=== PATIENT | female | born 1965 | race Caucasian/White ===

== ENCOUNTER 2019-02-26 17:12 | Emergency (ER) | payer BC, OTHER ==
[2019-02-26] MEDS ORDERED: ALBUTEROL 2.5 MG/3 ML NEB SOL ONE (17:35)
[2019-02-26] MEDS ORDERED: ASPIRIN 81 MG CHEWABLE TABLET ONE (17:36)
[2019-02-26] MEDS ORDERED: IPRATROPIUM BROM 0.5MG/2.5ML ONE (17:36)
--- NOTE | 2019-02-26 18:01 | RAD REPORT ---
EXAM DESCRIPTION: RAD - Chest Single View - 02/26/2019 5:46 pm CLINICAL HISTORY: Chest pain;SOB Chest pain. COMPARISON: <Comparisons> FINDINGS: Portable technique limits examination quality. The lungs are mildly emphysematous but grossly clear. The heart is normal in size. No displaced fract ures. IMPRESSION: No acute intrathoracic process suspected.
[2019-02-26] MEDS ORDERED: ACETAMINOPHEN 500 MG TAB ONE (18:11)
[2019-02-26 18:24] LABS: Absolute Lymphocytes (CBC) 1.4 K/uL (0.7-4.9); Basophils % 0.3 % (0-1.3); Hematocrit 37.5 % (36.0-45.0); Lymphocytes % 28.7 % (15.3-44.8); MPV 8.8 fL (7.6-11.3); RBC Red Blood Cell Count 3.92 M/uL (3.86-4.86)
[2019-02-26 18:25] LABS: Protime INR 0.99
[2019-02-26 18:43] LABS: ALT/SGPT 129 U/L (12-78); AST/SGOT 82 U/L (15-37); Alkaline Phosphatase 97 U/L (45-117); BUN Blood Urea Nitrogen 11 mg/dL (7-18); Bicarbonate 27 mmol/L (21-32); Bilirubin Direct < 0.1 mg/dL (0-0.2); Bilirubin Total 0.4 mg/dL (0.2-1.0); Glucose Level 91 mg/dL (74-106); Magnesium 2.4 mg/dL (1.8-2.4); NT PRO-BNP 52 pg/mL (<125); Protein, Total 7.5 g/dL (6.4-8.2); Sodium Level 138 mmol/L (136-145); Troponin (Emerg Dept Use Only) < 0.02 ng/mL (0.0-0.045)
[2019-02-26] MEDS ORDERED: HYDROCODONE/CHLORPHEN 5 ML/OSYR ONE (18:58)
[2019-02-26] MEDS ORDERED: predniSONE 20 MG TAB ONE (18:58)
--- NOTE | 2019-02-26 22:02 | ER ---
Nurse's Notes [facility] Name: Olivia Powers Age: 53 yrs Sex: Female : 1965 Arrival Date: 02/26/2019 Time: 17:13 Bed 16 Private MD: Diagnosis: Chest pain, unspecified;Shortness of breath;Cough Presentation: 02/26 17:15 Presenting complaint: Patient states: Chest pain, SOB, headache, for 2-3 weeks. Cough la1 for one week. Transition of care: patient was not received from another setting of care. Onset of symptoms was February 26, 2019. Risk Assessment: Do you want to hurt yourself or someone else? Patient reports no desire to harm self or others. Initial Sepsis Screen: Does the patient meet any 2 criteria? No. Patient's initial sepsis screen is negative. Does the patient have a suspected source of infection? No. Patient's initial sepsis screen is negative. Care prior to arrival: None. 17:15 Method Of Arrival: Ambulatory la1 17:15 Acuity: RITO 3 la1 SENIOR OPERATIONS ANALYST: 17:30 LMP N/A - Post-menopause jl7 Historical: - Allergies: 17:16 No Known Allergies; la1 - PMHx: 17:16 None; la1 - PSHx: 17:16 ear sx; Hysterectomy; Cholecystectomy; D \T\ C; la1 - Immunization history:: Adult Immunizations up to date. - Social history:: Smoking status: Patient/guardian denies using tobacco. - Ebola Screening: : No symptoms or risks identified at this time. Screenin:30 Abuse screen: Denies threats or abuse. Denies injuries from another. Nutritional jl7 screening: No deficits noted. Tuberculosis screening: No symptoms or risk factors identified. 18:30 Fall Risk IV access (20 points). Total Callejas Fall Scale indicates No Risk (0-24 pts). jl7 Assessment: 17:30 General: Appears in no apparent distress. uncomfortable, Behavior is calm, cooperative, jl7 appropriate for age. Pain: Complains of pain in chest Pain does not radiate. Pain currently is 4 out of 10 on a pain scale. at worst was 6 out of 10 on a pain scale. Quality of pain is described as pressure, Pain began 2-3 days ago. Is intermittent. Neuro: Level of Consciousness is awake, alert, obeys commands, Oriented to person, place, time, situation. Cardiovascular: Heart tones S1 S2 present Patient's skin is warm and dry. Respiratory: Airway is patent Respiratory effort is even, unlabored, Respiratory pattern is regular, symmetrical, Breath sounds are clear bilaterally. GI: Abdomen is round non-distended. Derm: Skin is pink, warm \T\ dry. 18:30 Reassessment: Patient appears in no apparent distress at this time. Patient and/or jl7 family updated on plan of care and expected duration. Pain level reassessed. Patient is alert, oriented x 3, equal unlabored respirations, skin warm/dry/pink. 19:15 Reassessment: Patient appears in no apparent distress at this time. Patient and/or jb4 family updated on plan of care and expected duration. Pain level reassessed. Patient is alert, oriented x 3, equal unlabored respirations, skin warm/dry/pink. 19:15 Respiratory: Airway is patent Respiratory effort is even, unlabored, Respiratory jb4 pattern is regular, symmetrical. 20:00 Reassessment: Patient appears in no apparent distress at this time. Patient and/or jb4 family updated on plan of care and expected duration. Pain level reassessed. Patient is alert, oriented x 3, equal unlabored respirations, skin warm/dry/pink. 21:00 Reassessment: Patient appears in no apparent distress at this time. Patient and/or jb4 family updated on plan of care and expected duration. Pain level reassessed. Patient is alert, oriented x 3, equal unlabored respirations, skin warm/dry/pink. 22:11 Reassessment: Patient appears in no apparent distress at this time. Patient and/or jb4 family updated on plan of care and expected duration. Pain level reassessed. Patient is alert, oriented x 3, equal unlabored respirations, skin warm/dry/pink. Pt verbalized understanding of d/c and follow up instructions, ambulated out of Ed with steady gait with family. Vital Signs: 17:16 BP 134 / 83; Pulse 79; Resp 16; Temp 97.6; Pulse Ox 98% on R/A; Weight 90.72 kg; Height la1 5 ft. 6 in. (167.64 cm); 19:00 BP 146 / 85; Pulse 86; Resp 21; Pulse Ox 93% on R/A; jb4 19:45 BP 127 / 92; Pulse 80; Resp 21; Pulse Ox 100% on R/A; jb4 21:15 BP 133 / 95; Pulse 76; Resp 20; Pulse Ox 96% on R/A; jb4 22:09 BP 133 / 90; Pulse 84; Resp 18; Pulse Ox 96% on R/A; jb4 17:16 Body Mass Index 32.28 (90.72 kg, 167.64 cm) la1 ED Course: 17:13 Patient arrived in ED. as 17:16 Triage completed. la1 17:17 Arm band placed on right wrist. la1 17:19 Jimy Gonsalves PA is PHCP. cp 17:19 Jimy Garcia MD is Attending Physician. cp 17:23 Philly Spann, ARTEM is Primary Nurse. jl7 17:30 Patient has correct armband on for positive identification. Placed in gown. Bed in low jl7 position. Call light in reach. Side rails up X 1. front of house manager on. Pulse ox on. NIBP on. Warm blanket given. 17:30 Missed attempt(s): 22 gauge in left antecubital area. jl7 17:30 Initial lab(s) drawn, by me, sent to lab. jl7 17:35 EKG done, by air sealing technician. reviewed by Jimy Garcia MD. sm3 17:47 XRAY Chest (1 view) In Process Unspecified. EDMS 18:30 Patient maintains SpO2 saturation greater than 95% on room air. jl7 22:01 Radames Cooley MD is Referral Physician. cp 22:12 No provider procedures requiring assistance completed. Patient did not have IV access jb4 during this emergency room visit. Administered Medications: 17:50 Drug: AtroVENT Aerosol 0.5 mg Route: Inhalation; jl7 17:55 Drug: Aspirin Chewable Tablet 324 mg Route: PO; jl7 18:53 Follow up: Response: No adverse reaction jl7 17:55 Drug: Albuterol 2.5 mg Route: Inhalation; jl7 18:14 Drug: Tylenol 1000 mg Route: PO; jl7 19:01 Follow up: Response: No adverse reaction jl7 19:00 Drug: Tussionex Pennkinetic ER 5 ml Route: PO; jl7 19:01 Follow up: Response: No adverse reaction jl7 19:00 Drug: predniSONE 60 mg Route: PO; jl7 19:01 Follow up: Response: No adverse reaction jl7 Outcome: 22:02 Discharge ordered by . arisa 22:12 Discharged to home ambulatory, with family. jb4 22:12 Condition: stable 22:12 Discharge instructions given to patient, family, Instructed on discharge instructions, follow up and referral plans. medication usage, Demonstrated understanding of instructions, follow-up care, medications, Prescriptions given X 3. 22:13 Patient left the ED. jb4 Signatures: Dispatcher [employer] EDMS Erma Robertson Lee RN RN la1 Jimy Gonsalves PA PA cp Bryson, James RN RN jb4 Philly Spann RN RN jl7 Dodie Velasco 3 Corrections: (The following items were deleted from the chart) 17:17 17:15 Presenting complaint: Patient states: Chest pain, SOB, headache, for 2-3 weeks. la1 la1 19:50 19:00 BP 127 / 92; Pulse 80bpm; Resp 21bpm; Pulse Ox 100% RA; jb4 jb4
--- NOTE | 2019-02-26 22:02 | EDPHYS ---
Physician Documentation [facility] Name: Olivia Powers Age: 53 yrs Sex: Female : 1965 Arrival Date: 02/26/2019 Time: 17:13 Bed 16 Private MD: SARA Physician Jimy Garcia HPI: 02/26 17:30 This 53 yrs old Female presents to ER via Ambulatory with complaints of Chest cp Pain, Shortness Of Breath. 17:30 The patient or guardian reports chest pain that is located primarily in the anterior cp chest wall, bilaterally. Onset: 2-3 weeks ago. Associated signs and symptoms: Pertinent positives: cough, headache, shortness of breath, Pertinent negatives: abdominal pain, diaphoresis, dizziness, lower extremity pain, lower extremity swelling, lightheadedness, palpitations, recent travel, syncope, vomiting, recent surgeries. The chest pain is described as a pressure. Duration: The patient or guardian reports a single episode, that is still ongoing, and unchanged. Modifying factors: The symptoms are alleviated by nothing. the symptoms are aggravated by nothing. SHAREPOINT ADMIN: 17:30 LMP N/A - Post-menopause jl7 Historical: - Allergies: 17:16 No Known Allergies; la1 - PMHx: 17:16 None; la1 - PSHx: 17:16 ear sx; Hysterectomy; Cholecystectomy; D \T\ C; la1 - Immunization history:: Adult Immunizations up to date. - Social history:: Smoking status: Patient/guardian denies using tobacco. - Ebola Screening: : No symptoms or risks identified at this time. ROS: 17:35 Constitutional: Negative for body aches, chills, fever, poor PO intake. cp 17:35 Eyes: Negative for injury, pain, redness, and discharge. cp 17:35 ENT: Positive for ear pain, Negative for drainage from ear(s), sore throat, difficulty swallowing, difficulty handling secretions. 17:35 Cardiovascular: Positive for chest pain, Negative for edema, palpitations. 17:35 Respiratory: Positive for cough, shortness of breath, on exertion. Negative for wheezing. 17:35 Abdomen/GI: Negative for abdominal pain, nausea, vomiting, and diarrhea, black/tarry stool, rectal bleeding. 17:35 Back: Negative for radiated pain. 17:35 Skin: Negative for rash. 17:35 Neuro: Positive for headache, Negative for altered mental status, syncope, weakness. 17:35 All other systems are negative. Exam: 17:30 ECG was reviewed by the Attending Physician. cp 17:40 Constitutional: The patient appears in no acute distress, alert, awake, cp non-diaphoretic, non-toxic, well developed, well nourished. 17:40 Head/Face: Normocephalic, atraumatic. cp 17:40 Eyes: Periorbital structures: appear normal, Conjunctiva: normal, no exudate, no injection, Sclera: no appreciated abnormality, Lids and lashes: appear normal, bilaterally. 17:40 ENT: External ear(s): are unremarkable, Ear canal(s): are normal, clear, TM's: bulging, is not appreciated, bilaterally, dullness, bilaterally, erythema, is not appreciated, bilaterally, Nose: is normal, Mouth: Lips: moist, Oral mucosa: pink and intact, moist, Posterior pharynx: is normal, airway is patent, no erythema, no exudate. 17:40 Neck: ROM/movement: is normal, is supple, without pain, no range of motions limitations, no meningismus, no nuchal rigidity, Lymph nodes: no appreciated lymphadenopathy. 17:40 Chest/axilla: Inspection: normal, Palpation: is normal, no crepitus, no tenderness. 17:40 Cardiovascular: Rate: normal, Rhythm: regular, Heart sounds: murmur, not appreciated, rub, not appreciated, gallop, not appreciated, Edema: is not appreciated, JVD: is not appreciated. 17:40 Respiratory: the patient does not display signs of respiratory distress, Respirations: normal, no use of accessory muscles, no retractions, no splinting, no tachypnea, labored breathing, is not present, Breath sounds: are clear throughout, no decreased breath sounds, no stridor, no wheezing. 17:40 Abdomen/GI: Inspection: abdomen appears normal, Bowel sounds: active, all quadrants, Palpation: abdomen is soft and non-tender, in all quadrants. 17:40 Back: pain, is absent, ROM is normal. 17:40 Skin: cellulitis, is not appreciated, no rash present. 17:40 Neuro: Orientation: to person, place \T\ time. Mentation: is normal, Cerebellar function: is grossly normal, Motor: moves all fours, strength is normal, Sensation: is normal. 21:13 ECG was reviewed by the Attending Physician. cp Vital Signs: 17:16 BP 134 / 83; Pulse 79; Resp 16; Temp 97.6; Pulse Ox 98% on R/A; Weight 90.72 kg; Height la1 5 ft. 6 in. (167.64 cm); 19:00 BP 146 / 85; Pulse 86; Resp 21; Pulse Ox 93% on R/A; jb4 19:45 BP 127 / 92; Pulse 80; Resp 21; Pulse Ox 100% on R/A; jb4 21:15 BP 133 / 95; Pulse 76; Resp 20; Pulse Ox 96% on R/A; jb4 22:09 BP 133 / 90; Pulse 84; Resp 18; Pulse Ox 96% on R/A; jb4 17:16 Body Mass Index 32.28 (90.72 kg, 167.64 cm) la1 MDM: 17:29 Patient medically screened. ethan 18:52 HEART Score: History: Slightly Suspicious (0), ECG: Normal (0), Age: > 45 and < 65 cp years (1), Risk Factors: No Risk Factors Known (0), Troponin: < or = 1 x Normal Limit (0), Total Score = 1. The patient was given aspirin in the Emergency Department. The patient's pulmonary embolism risk score was calculated as follows: No Risks (0 Pts). 22:01 Data reviewed: vital signs, nurses notes, lab test result(s), EKG, radiologic studies, cp plain films. 22:01 Test interpretation: by ED physician or midlevel provider: ECG, plain radiologic cp studies. Counseling: I had a detailed discussion with the patient and/or guardian regarding: the historical points, exam findings, and any diagnostic results supporting the discharge/admit diagnosis, lab results, radiology results, the need for outpatient follow up, a road cutter, a family practitioner, to return to the emergency department if symptoms worsen or persist or if there are any questions or concerns that arise at home. ED course: VSS. Patient reports symptoms improved with breathing treatment and meds. Initial and repeat EKGs and troponin negative. Will discharge to home for continued monitoring. 02/26 17:30 Order name: Basic Metabolic Panel; Complete Time: 18:45 cp 02/26 17:30 Order name: CBC with Diff; Complete Time: 18:38 cp 02/26 17:30 Order name: LFT's; Complete Time: 18:45 cp 02/26 18:45 Interpretation: Normal except: AST 82; ALT 129. cp / 17:30 Order name: Magnesium; Complete Time: 18:45 cp 02/26 17:30 Order name: NT PRO-BNP; Complete Time: 18:45 cp 02/26 17:30 Order name: PT-INR; Complete Time: 18:38 cp 02/26 17:30 Order name: Troponin (emerg Dept Use Only); Complete Time: 18:45 cp 02/26 18:47 Interpretation: Normal except: TROPED < 0.02. cp 02/26 17:30 Order name: XRAY Chest (1 view); Complete Time: 18:09 cp 02/26 18:09 Interpretation: Report review. cp 02/26 21:02 Order name: Troponin I cp 02/26 17:30 Order name: EKG; Complete Time: 17:33 cp 02/26 17:30 Order name: Cardiac monitoring; Complete Time: 18:16 cp 02/26 17:30 Order name: EKG - Nurse/Tech; Complete Time: 18:16 cp 02/26 17:30 Order name: IV Saline Lock; Complete Time: 18:16 cp 02/26 17:30 Order name: Labs collected and sent; Complete Time: 18:16 cp 02/26 17:30 Order name: O2 Per Protocol; Complete Time: 18:16 cp 02/26 17:30 Order name: O2 Sat Monitoring; Complete Time: 18:16 cp 02/26 21:02 Order name: EKG; Complete Time: 21:03 cp 02/26 21:02 Order name: EKG - Nurse/Tech; Complete Time: 21:07 cp EC:30 Rate is 73 beats/min. Rhythm is regular. GA interval is normal. QRS interval is normal. cp QT interval is normal. T waves are Inverted in lead aVL. Interpreted by me. Reviewed by me. 21:13 Rate is 74 beats/min. Rhythm is regular. GA interval is normal. QRS interval is normal. cp QT interval is normal. Interpreted by me. Reviewed by me. Administered Medications: 17:50 Drug: AtroVENT Aerosol 0.5 mg Route: Inhalation; jl7 17:55 Drug: Aspirin Chewable Tablet 324 mg Route: PO; jl7 18:53 Follow up: Response: No adverse reaction 7 17:55 Drug: Albuterol 2.5 mg Route: Inhalation; jl7 18:14 Drug: Tylenol 1000 mg Route: PO; jl7 19:01 Follow up: Response: No adverse reaction 7 19:00 Drug: Tussionex Pennkinetic ER 5 ml Route: PO; jl7 19:01 Follow up: Response: No adverse reaction 7 19:00 Drug: predniSONE 60 mg Route: PO; jl7 19:01 Follow up: Response: No adverse reaction jl7 Disposition: 02/27 07:18 Co-signature as Attending Physician, Jimy Garcia MD I agree with the assessment and ethan plan of care. Disposition: 02/26/19 22:02 Discharged to Home. Impression: Chest pain, unspecified, Shortness of breath, Cough. - Condition is Stable. - Discharge Instructions: Nonspecific Chest Pain, Shortness of Breath, Aspirin and Your Heart, Cough, Adult. - Prescriptions for Tessalon Perles 100 mg Oral Capsule - take 2 capsule by ORAL route every 8 hours As needed; 20 capsule. Medrol (Clifford) 4 mg Oral Tablets, Dose Pack - take 1 tablet by ORAL route as directed - follow package instructions; 1 packet. Albuterol Sulfate 90 mcg/actuation - inhale 1-2 puff by INHALATION route every 4-6 hours; 1 Inhaler. - Medication Reconciliation Form, Thank You Letter, Antibiotic Education, Prescription Opioid Use form. - Follow up: Private Physician; When: 1 - 2 days; Reason: Recheck today's complaints. Follow up: Radames Cooley MD; When: 03/06/2019; Reason: as scheduled. - Problem is new. - Symptoms have improved. Signatures: Dispatcher [employer] Jimy Ness MD MD cha Attema, Lee RN RN la1 Jimy Gonsalves PA PA cp Bryson, James, ARTEM RN jb4 Philly Spann RN RN jl7 Corrections: (The following items were deleted from the chart) 02/26 22:03 22:02 02/26/2019 22:02 Discharged to Home. Impression: Chest pain, unspecified; cp Shortness of breath. Condition is Stable. Forms are Medication Reconciliation Form, Thank You Letter, Antibiotic Education, Prescription Opioid Use. Follow up: Private Physician; When: 1 - 2 days; Reason: Recheck today's complaints. Follow up: Radames Cooley; When: 03/06/2019; Reason: as scheduled. Problem is new. Symptoms have improved. cp 22:13 22:03 02/26/2019 22:02 Discharged to Home. Impression: Chest pain, unspecified; jb4 Shortness of breath; Cough. Condition is Stable. Discharge Instructions: Nonspecific Chest Pain, Shortness of Breath, Aspirin and Your Heart, Cough, Adult. Prescriptions for Tessalon Perles 100 mg Oral Capsule - take 2 capsule by ORAL route every 8 hours As needed; 20 capsule, Medrol (Clifford) 4 mg Oral Tablets, Dose Pack - take 1 tablet by ORAL route as directed - follow package instructions; 1 packet, Albuterol Sulfate 90 mcg/actuation - inhale 1-2 puff by INHALATION route every 4-6 hours; 1 Inhaler. and Forms are Medication Reconciliation Form, Thank You Letter, Antibiotic Education, Prescription Opioid Use. Follow up: Private Physician; When: 1 - 2 days; Reason: Recheck today's complaints. Follow up: Radames Cooley; When: 03/06/2019; Reason: as scheduled. Problem is new. Symptoms have improved. cp
--- NOTE | 2019-02-27 07:14 | EKG ---
Test Date: 2019-02-26 Test Time: 20:59:58 Rn Clinical Review: LINDY MEASUREMENT RESULTS: Intervals: Rate: 74 NM: 168 QRSD: 84 QT: 398 QTc: 441 [place]: P: 69 NM: 168 QRS: 63 T: 61 INTERPRETIVE STATEMENTS: Normal sinus rhythm Cannot rule out Anterior infarct, age undetermined Abnormal ECG Compared to ECG 02/26/2019 17:23:20 Myocardial infarct finding now present Electronically Signed On 02-27-19 07:13:15 CDT by Radames Cooley
--- NOTE | 2019-02-27 07:14 | EKG ---
Test Date: 2019-02-26 Test Time: 17:23:20 Talent Engineer: DONAVAN MEASUREMENT RESULTS: Intervals: Rate: 73 CO: 156 QRSD: 82 QT: 376 QTc: 414 [place]: P: 78 CO: 156 QRS: 72 T: 68 INTERPRETIVE STATEMENTS: Normal sinus rhythm Normal ECG Compared to ECG 08/21/2017 13:29:34 No significant changes Electronically Signed On 02-27-19 07:13:20 CDT by Radames Cooley
== END 2019-02-26 22:13 | disposition home or self-care (01) ==
LOC: ER 17:12
DX: R06.02 Shortness of breath (principal); R05 Cough
CPT/HCPCS: 36415; 71045; 80048; 80076; 83735; 83880; 84484; 85025; 85610; 93005; 99285; J7512

== ENCOUNTER 2020-01-10 13:38 | Emergency (ER) | payer BC, OTHER ==
--- OUTSIDE RECORDS SUMMARY | 2020-01-10 13:40 | XMS REPORT ---
:1965 Author Organization eClinicalWorks Care Team Providers Name Role Phone Strickland Tony Provider Role Unavailable Allergies, Adverse Reactions, Alerts Substance Reaction Event Type N.K.D.A. Info Not Available Non Drug Allergy Problems Problem Type Condition Code Onset Dates Condition Statu s Assessment Primary osteoarthritis of left M17.12 Active knee Problem Primary osteoarthritis of left M17.12 Active knee Assessment Transient synovitis, left knee M67.362 Active Assessment Other tear of medial meniscus of S83.242A Active left knee as current injury, initial encounter Medications Medication Code Code Instructions Start End Status Dosage System Date Date Tobramycin-Dexametha [facility] [address]-11 Activ e not sone defined Meloxicam [facility] [address]-41 Active not defined MethylPREDNISolone [facility] [address]-43 Active not defined Diclofenac Sodium [facility] [id number] 1 % Active as Transdermal directed Four times a day Results No Known Results Summary Purpose eClinicalWorks Submission
--- OUTSIDE RECORDS SUMMARY | 2020-01-10 13:40 | XMS REPORT | Continuity of Care Document ---
:1965 Author Organization [facility] t Address [address] [place] [address] Care Team Providers Name Role Phone Unavailable Unavailable Unavailable Payers Payer Name Policy Type Policy Number Effective Date Expiration Date S ource Problems Condition Condition Condition Status Onset Resolution Last Treating Co mments Source Name Details Category Date Date Treatment Clinician Date Transient Transient Diagnosis Active [facility] synovitis, synovitis, Nenita kes - left knee left knee [facility] Primary Primary Problem Active [facility] osteoarthr osteoarthr Nenita kes - itis of itis [facility] left knee left knee l [facility] Other tear Other tear Diagnosis Active [facility] of medial of medial Luke [facility] - meniscus meniscus Memori a of left of left l knee as knee as Outpati current current ent injury, injury, Clinics initial initial encounter encounter Allergies, Adverse Reactions, Alerts Allergy Allergy Status Severity Reaction(s) Onset Inactive Treating Comm ents Source Name Type Date Date Clinician No Known DA Active [facility] 12[facility]28 [place] [facility] No Known DA Active [facility] 11-18 [place] [facility] Medications Ordered Filled Start Stop Current Ordering Indication Dosage Frequency Signature Comments Components Source Medication Medication Date Date Medication? Clinician (SIG) Name Name MethylPREDN MethylPREDN Yes Tony not [facility] ISolone ISolone Strickland defined [facility] Tobramycin- Tobramycin- Yes Tony not [facility] Dexamethaso Dexamethaso Strickland defined [facility] Meloxicam Meloxicam Yes Tony not [facility] Strickland defined [facility] Diclofenac Diclofenac Yes Tony as [facility] Sodium Sodium Strickland directed [facility] Procedures This patient has no known procedures. Encounters Start End Encounter Admission Attending Care Care Encounter Source Date/Time Date/Time Type Type Clinicians Facility Department ID 2019-11-10 2019-11-10 [facility] [id number] [facility] 08[facility] 08[facility] 2019-10-16 2019-10-16 [facility] [id number] [facility] [address] 08:45:00 08:45[facility] 2019-10-09 2019-10-09 [facility] [id number] [address] 08:45[facility]00 08:45[facility]00 [facility] 2019-09-29 2019-09-29 [facility] [id number] [facility] 08:41:00 08:41:00 [facility] 2019-09-17 2019-09-17 [facility] [id number] [facility] 09:56:00 09:56:00 [facility] 2019-09-01 2019-09-01 [facility] [id number] [facility] [address] 14:18[facility]00 14:18[facility]00 [facility] 2019-08-12 2019-08-12 [facility] [id number] [address] 09:37:00 09:37:00 [facility] 2019-08-06 2019-08-06 Out[facility] [id number] 11:00:00 11:00:00 [facility] Results This patient has no known results.
--- OUTSIDE RECORDS SUMMARY | 2020-01-10 13:40 | XMS REPORT ---
:1965 Author Organization e[employer] Care Team Providers Name Role Phone Tony Strickland Provider Role Unavailable Allergies, Adverse Reactions, Alerts [...] Start End Status Dosage System Date Date MethylPREDNISolone NDC 59163-44 Active not 90-21 [place] [address]-48 Active not ne 52-05 defined Results No Known Results Summary Purpose eClinicalWorks Submission
--- NOTE | 2020-01-10 15:55 | ER ---
Nurse's Notes [facility] Name: Olivia Powers Age: 54 yrs Sex: Female : 1965 Arrival Date: 01/10/2020 Time: 13:44 Bed 17 Private MD: Diagnosis: Acute upper respiratory infection, unspecified Presentation: 01/09 13:53 Chief complaint: Patient states: sinus drainage, cough, nausea, fatigue, sweating x 2 sv days. +COVID exposure at work. Denies SOB, CP, fever. Coronavirus screen: Surgical mask placed on patient. Patient moved to private room, placed in contact and droplet isolation with eye protection until further assessment. Patient reports a cough. Patient denies shortness of breath or difficulty breathing. Patient denies measured and/or subjective temperature greater than 100.4F prior to today's visit. Patient denies travel on a cruise ship or to a country the [facility] currently lists as an affected area. Patient reports contact with known and/or suspected case of COVID-19. Ebola Screen: No symptoms or risks identified at this time. Risk Assessment: Do you want to hurt yourself or someone else? Patient reports no desire to harm self or others. Onset of symptoms was January 08, 2020. 13:53 Method Of Arrival: Ambulatory sv 13:53 Acuity: RITO 3 sv Historical: - Allergies: 13:56 No Known Allergies; sv - PMHx: 13:56 None; sv - PSHx: 13:56 ear sx; Hysterectomy; Cholecystectomy; D \T\ C; Knee surgery; sv - Immunization history:: Flu vaccine is up to date. - Social history:: Smoking status: Patient denies any tobacco usage or history of. Screenin:59 Abuse screen: Denies threats or abuse. Nutritional screening: No deficits noted. Tuberculosis screening: No symptoms or risk factors identified. Fall Risk None identified. Vital Signs: 13:53 Weight 97.52 kg; Height 5 ft. 6 in. (167.64 cm); Pain 0/10; sv 13:53 Body Mass Index 34.70 (97.52 kg, 167.64 cm) sv ED Course: 13:44 Patient arrived in ED. mr 13:48 Stevo Welch NP is PHCP. pm1 13:48 Amparo Reeder MD is Attending Physician. pm1 13:55 Triage completed. sv 13:56 Arm band placed on Patient placed in an exam room, on a stretcher. 13:59 Jessica Long, RN is Primary Nurse. 14:00 Patient has correct armband on for positive identification. Bed in low position. Call light in reach. Administered Medications: No medications were administered Outcome: 15:54 Discharge ordered by MD. pm1 16:27 Patient left the ED. sv Signatures: Saige Tapia RN RN Caitlin Hoyt Patrick, SPEEDER FRAME TENDER SPEEDER FRAME TENDER pm1 Jessica Long, RN RN
--- NOTE | 2020-01-10 15:55 | EDPHYS ---
Physician Documentation [facility] Name: Olivia Powers Age: 54 yrs Sex: Female : 1965 Arrival Date: 01/10/2020 Time: 13:44 Bed 17 Private MD: ED Physician Amparo Reeder HPI: 01/09 15:04 This 54 yrs old Female presents to ER via Ambulatory with complaints of pm1 Cough, Nausea. 15:04 The patient or guardian reports cough, with no sputum. pm1 15:04 Onset: The symptoms/episode began/occurred 2 day(s) ago. Severity of symptoms: in the pm1 emergency department the symptoms are actually worse. Modifying factors: The symptoms are alleviated by nothing, the symptoms are aggravated by nothing. Associated signs and symptoms: Pertinent positives: sore throat, body aches, nausea, earache, sinus congestion, Pertinent negatives: shortness of breath, vomiting, diarrhea. The patient has not experienced similar symptoms in the past. Patient works at a [employer] and they are having weekly tests. she had a negative test last week but she started having symptoms 2 days ago. Her coworker tested positive for covid today. . Historical: - Allergies: 13:56 No Known Allergies; sv - PMHx: 13:56 None; sv - PSHx: 13:56 ear sx; Hysterectomy; Cholecystectomy; D \T\ C; Knee surgery; sv - Immunization history:: Flu vaccine is up to date. - Social history:: Smoking status: Patient denies any tobacco usage or history of. ROS: 15:04 Eyes: Negative for injury, pain, redness, and discharge. pm1 15:04 Neck: Negative for injury, pain, and swelling, Cardiovascular: Negative for chest pain, palpitations, and edema. 15:04 Abdomen/GI: Negative for abdominal pain, nausea, vomiting, diarrhea, and constipation, Back: Negative for injury and pain, MS/Extremity: Negative for injury and deformity, Skin: Negative for injury, rash, and discoloration, Neuro: Negative for headache, weakness, numbness, tingling, and seizure. 15:04 Constitutional: Positive for body aches, Negative for poor PO intake. 15:04 ENT: Positive for ear pain, sinus congestion, sore throat. 15:04 Respiratory: Positive for cough, Negative for shortness of breath, sputum production, wheezing. Exam: 15:04 Constitutional: This is a well developed, well nourished patient who is awake, alert, pm1 and in no acute distress. Head/Face: Normocephalic, atraumatic. Eyes: Pupils equal round and reactive to light, extra-ocular motions intact. Lids and lashes normal. Conjunctiva and sclera are non-icteric and not injected. Cornea within normal limits. Periorbital areas with no swelling, redness, or edema. ENT: Nares patent. No nasal discharge, no septal abnormalities noted. Tympanic membranes are normal and external auditory canals are clear. Oropharynx with no redness, swelling, or masses, exudates, or evidence of obstruction, uvula midline. Mucous membranes moist. Neck: Trachea midline, no thyromegaly or masses palpated, and no cervical lymphadenopathy. Supple, full range of motion without nuchal rigidity, or vertebral point tenderness. No Meningismus. Chest/axilla: Normal chest wall appearance and motion. Nontender with no deformity. No lesions are appreciated. 15:04 Skin: Warm, dry with normal turgor. Normal color with no rashes, no lesions, and no evidence of cellulitis. MS/ Extremity: Pulses equal, no cyanosis. Neurovascular intact. Full, normal range of motion. 15:04 Cardiovascular: Exam negative for acute changes, Rate: normal, Rhythm: regular, Pulses: no pulse deficits are appreciated, Edema: is not appreciated. 15:04 Respiratory: Exam negative for acute changes, respiratory distress, shortness of breath, wheezing. 15:04 Abdomen/GI: Exam negative for acute changes, Inspection: abdomen appears normal, Palpation: abdomen is soft and non-tender, in all quadrants. 15:04 Neuro: Exam negative for acute changes, Orientation: is normal, Mentation: is normal, Motor: is normal, moves all fours. Vital Signs: 13:53 Weight 97.52 kg; Height 5 ft. 6 in. (167.64 cm); Pain 0/10; sv 13:53 Body Mass Index 34.70 (97.52 kg, 167.64 cm) sv MDM: 13:54 Patient medically screened. pm1 15:53 Data reviewed: vital signs. Data interpreted: Pulse oximetry: on room air is 96 %. pm1 Interpretation: normal. Counseling: I had a detailed discussion with the patient and/or guardian regarding: the historical points, exam findings, and any diagnostic results supporting the discharge/admit diagnosis, lab results, the need for outpatient follow up, to return to the emergency department if symptoms worsen or persist or if there are any questions or concerns that arise at home. 01/09 14:11 Order name: COVID-19 pm1 01/09 14:11 Order name: Flu; Complete Time: 15:02 pm1 01/09 14:11 Order name: Strep; Complete Time: 15:02 pm1 01/09 14:11 Order name: Droplet/Contact Precautions; Complete Time: 14:15 pm1 01/09 15:04 Order name: Throat Culture EDLA 01/09 14:11 Order name: Labs collected and sent; Complete Time: 14:15 pm1 01/09 14:11 Order name: O2 Per Protocol; Complete Time: 14:15 pm1 Administered Medications: No medications were administered Disposition: 01/10/20 15:54 Discharged to Home. Impression: Acute upper respiratory infection, unspecified. - Condition is Stable. - Discharge Instructions: COVID-19, Upper Respiratory Infection, Adult. - Prescriptions for Tessalon Perles 100 mg Oral Capsule - take 1 capsule by ORAL route every 8 hours As needed; 15 capsule. Zofran 4 mg Oral Tablet - take 1 tablet by ORAL route every 8 hours As needed; 10 tablet. - Work release form, Medication Reconciliation Form, Thank You Letter, Antibiotic Education, Prescription Opioid Use form. - Follow up: Emergency Department; When: As needed; Reason: Worsening of condition. Follow up: Private Physician; When: 2 - 3 days; Reason: Recheck today's complaints, Continuance of care, Re-evaluation by your physician. - Problem is new. - Symptoms have improved. Signatures: Dispatcher [employer] Saige Valenzuela RN RN sv Marinas, Patrick, NP DIRECTOR GLOBAL DEVELOPMENT pm1 Corrections: (The following items were deleted from the chart) 16:27 15:54 01/10/2020 15:54 Discharged to Home. Impression: Acute upper respiratory sv infection, unspecified. Condition is Stable. Discharge Instructions: COVID-19. Forms are Medication Reconciliation Form, Thank You Letter, Antibiotic Education, Prescription Opioid Use. Follow up: Emergency Department; When: As needed; Reason: Worsening of condition. Follow up: Private Physician; When: 2 - 3 days; Reason: Recheck today's complaints, Continuance of care, Re-evaluation by your physician. Problem is new. Symptoms have improved. pm1
== END 2020-01-10 16:27 | disposition home or self-care (01) ==
LOC: ER 13:38
DX: U07.1 COVID-19 (principal); J06.9 Acute upper respiratory infection, unspecified
CPT/HCPCS: 87070; 87081; 87804 ×2; 99281; U0001

== ENCOUNTER 2021-10-27 16:03 | Observation (INO) | payer OTHER ==
--- OUTSIDE RECORDS SUMMARY | 2021-10-27 16:09 | XMS REPORT | Continuity of Care Document ---
:1965 Author Organization [facility] t Address [address] [place] [address] Care Team Providers Name Role Phone Ra Stover Attending Clinician Unavailable Kika Esposito Attending Clinician Unavailable MITCH TYLER Attending Clinician Unavailable KAILEY IZQUIERDO Attending Clinician Unavailable Mitch Tyler MD Attending Clinician YESSENIA Admitting Clinician Unavailable Kika Esposito Admitting Clinician Unavailable Payers Payer Name Policy Type Policy Number Effective Date Expiration Date Juhi coates [employer] 2 [id number] 2018 00:00:00 Problems Condition Condition Condition Status Onset Resolution Last Treating Co mments Source Name Details Category Date Date Treatment Clinician Date Class 2 Class 2 Disease Active [facility]: 00 MILTON on MILTON on Disease Active Ann CPAP CPAP 01-06 Seybold 00:00: 00 Transient Transient Diagnosis Active C HI St [...] No Known DA Active U [facility] [place] [facility] No Known DA Active U UNKNOWN [facility] 08-01 [place] [facility] 00:00: [facility] flu DA Active IN SWELLING [facility] 07-25 Clear 00:00: Cates 00 [facility] No Known DA Active U [facility] 12-28 [place] [facility] 00:00: [facility] No Known DA Active U [facility] 12-28 [place] [facility] 00:00: [facility] No Known DA Active U [facility] 11-18 [place] [facility] 00:[facility] Social History Social Habit Start Date Stop Date Quantity Comments Source Exposure to Not sure Ann atkinson SARS-CoV-2 (event) Tobacco use and 2021-01-06 2021-01-06 Smokeless tobacco Rober boggsey Alireza exposure 00:00:00 00:00:00 non-user Sex Ass[birth year] At [birth year] Ann mosher 00:00:00 00:00:00 Smoking Status Start Date Stop Date Source Never smoked tobacco Ann roberts Medications Ordered Filled Start Stop Current Ordering Indication Dosage Frequency Signature Comments Components Source Medication Medication Date Date Medication? Clinician (SIG) Name Name Tramadol 2020- 50mg Q6H Take 50 mg Ke lsey HCl 50 MG -03-27 by mouth Silverio ld oral Tablet 18:00: 00:00 every 6 35 :00 hours as needed for pain Ca Yes 1{tbl} Take 1 Ann Phosphate-C 9-20 tablet by Pedro lopezcalcife 14:30: mouth rol 48 (Calcium/Vi tamin D3 Gummies) 200-200 MG-UNIT oral Chewable Tablet Ascorbic Yes 1{tbl} Take 1 Va y Acid 9-20 tablet by Alireza (Vitamin C) 14:30: mouth 100 MG oral 48 Chewable Tablet Cyanocobala Yes Take by Joseph bentley min (B-12) 9-20 mouth Seybold 1000 MCG 14:30: oral 48 Capsule Multiple Yes 1{tbl} Take 1 Va y Vitamins-Mi 9-20 tablet by Pedro bold nerals 14:30: mouth (Hair Skin 48 daily and Nails Formula) oral Tablet Zinc Yes 220mg Take 220 Ann Sulfate 9-20 mg by Seybold (Zinc-220) 14:30: mouth 220 (50 Zn) 48 daily MG oral Capsule Acetaminoph Yes 650mg Q8H Take 650 K elsey en (Tylenol 9-20 mg by Seybold 8 Hour) 650 14:30: mouth MG oral Tab 48 every 8 CR hours as needed for pain Calcium Yes 1{tbl} Take 1 Ann Carbonate - tablet by Seybo ld Antacid 14:30: mouth (Tums) 500 48 daily MG oral Chewable Tablet Cefdinir Yes [id number] 300mg Take 1 Ann 300 MG oral 03-27 37221 capsule Seyb old Capsule 00:00: (300 mg 00 total) by mouth 2 times daily NEOMYCIN-PO 2020- No [id number] 2[drp] Place 2 Ann LYMYXIN-HC, 03-27 32155 drops into Seybold OTIC, 1 % 00:00: 04:59 the right otic 00 :00 ear 3 Solution times daily for 7 days Fluconazole 2020- No [id number] 150mg Take 1 Ann 150 MG oral 03-27 tablet Seybo ld Tablet 00:00: 04:59 (150 mg 00 :00 total) by mouth once for 1 dose Albuterol Yes [id number] 2{puff} Q4H Inhale 2 Ann HFA 108 (90 03-08 puffs into Se ybold Base) 00:00: the lungs MCG/ACT IN 00 every 4 AERS hours as needed for wheezing Amoxicillin 2020- No [id number] 1{tbl} Take 1 Ann -Pot 03-08 tablet by Seybold Clavulanate 00:00: 00:00 mouth 3 500-125 MG 00 :00 times oral Tablet daily MethylPREDN MethylPREDN Yes Tony not [facility] ISolone ISolone [facility] defined [facility] Tobramycin- Tobramycin- Yes Tony not [facility] Dexamethaso Dexamethaso [facility] defined [facility] Meloxicam Meloxicam Yes Tony not [facility] defined [facility] Diclofenac Diclofenac Yes Tony as [facility] Sodium Sodium [facility] directed [facility] Immunizations Ordered Immunization Filled Immunization Date Status Commen ts Source Name Name Shingles IM 2021-01-06 Completed Ann atkinson (Shingrix) 00:00:00 [id number] 2009-04-29 Completed Ann Lay 00:00:00 Vital Signs Vital Name Observation Time Observation Value Comments Source Systolic blood pressure 2021-03-27 19:26:00 120 mm[Hg] Ann Seybold Diastolic blood 2021-03-27 19:26:00 62 mm[Hg] Kelse y Seybold pressure Heart rate 2021-03-27 19:26:00 96 /min Ann Juhi sylvia Body temperature 2021-03-27 19:26:00 36.5 Suzette Debbie ey Seybold Respiratory rate 2021-03-27 19:26:00 20 /min Debbie ey Seybold Body height 2021-03-27 19:26:00 167.6 cm Ann Reynaga sylvia Body weight 2021-03-27 19:26:00 95.165 kg Ann maytonya BMI 2021-03-27 19:26:00 33.86 kg/m2 Ann Juhi syvlia Procedures Procedure Date / Time Performed Performing Clinician Sourc e LS RAPID STREP ASSAY-LAB 2021-03-27 20:00:25 Margot Tyler TEST Encounters Start End Encounter Admission Attending Care Care Encounter Source Date/Time Date/Time Type Type Clinicians Facility Department ID 2021-08-02 Outpatient CODI Stover [facility] [id number] 11[facility]04:34 [facility] 2021-08-02 Outpatient CODI Stover [facility] [id number] [facility] 11:04:25 Guy [facility] 2020-08-02 Inpatient ABISAI Mcgill SURG [id number] [facility] 13:30:00 Melquiades [id number] [facility] 2021-09-22 2021-09-22 Outpatient ABISAI Mcgill DAYS [id number] [facility] 06:29:00 06:29:00 Melquiades [id number] [place] [facility] 2021-09-22 2021-09-22 Outpatient ABISAI Mcgill HCATO [id number] [facility] 06:29:00 06:29:00 Melquiades Nicolas [facility] 2021-05-25 2021-05-25 Outpatient ANN TYLER [id number] Ann 00:00:00 00:00:00 MARGOT Langstonol [place] 2021-03-31 2021-03-31 Outpatient DARRYN IZQUIERDO [id number] Ann 13:45:00 13:45:00 Seybol d 2021-03-27 2021-03-27 Office Darryn Tyler [id number] Ann 14:23:11 14:53:11 Visit Margot Castaneda [id number] [place] [id number] 2021-03-08 2021-03-08 Outpatient ANN TYLER [id number] Ann 10:30:00 10:30:00 MARGOT Seybol d 2021-03-07 2021-03-07 Outpatient ANN TYLER [id number] Ann 00:00:00 00:00:00 MARGOT Seybol d 2020-07-25 2020-07-25 Outpatient LACHELLE EspositoCL LABO [id number] [facility] 17:44:00 17:44:00 Melquiades [id number] [facility] 2020-07-25 2020-07-25 Outpatient ABISAI Esposito SURG [id number] [facility] 13:30:00 13:30:00 Melquiades [id number] [facility] 2019-12-31 2019-12-31 Outpatient ABISAI Esposito SURG [id number] [facility] 13:30:00 13:30:00 Melquiades [id number] [facility] 2019-12-29 2019-12-29 Outpatient Vaibhav, HCATO SURG [id number] [facility] 12:00:00 12:00:00 Melquiades [id number] [facility] 2019-11-10 2019-11-10 [facility] [id number] [facility] [address] 08:00:00 08:00:00 [facility] 2019-10-16 2019-10-16 [facility] [id number] [address] 08:45:00 08:45:00 t [facility] 2019-10-09 2019-10-09 [facility] [id number] 08:45:00 08:45:00 t [facility] 2019-09-29 2019-09-29 [facility] [id number] 08:41:00 08:41:00 t [facility] 2019-09-17 2019-09-17 [facility] [id number] 09:56:00 09:56:00 t [facility] 2019-09-01 2019-09-01 [facility] [id number] 14:18:00 14:18:00 t [facility] 2019-08-12 2019-08-12 [facility] [id number] 09:37:00 09:37:00 t [facility] 2019-08-06 2019-08-06 [facility] [id number] 11:00:00 11:00:00 t [facility] ent Clinics Results Test Description Test Time Test Comments Results Result Comments Source LS RAPID STREP ASSAY-LAB TEST 2021-03-27 20:17:49 Test Item Value Reference Range Interpretation Comme nts STREP GP A AG, IA (test code = Negative Negative Infection due to Strep A cannot [id number]) be ruled-out be cause the antigen present in the sample may be below th e detection limit of the te st. Specimen has been sent for c onfirmation of negative. Lab Interpretation (test code = Normal 67095-9) [facility] [id number] 06:51:00 Test Item Value Reference Range Interpretation Comments SODIUM (test code = 140 mmol/L 136-145 N NA) POTASSIUM (test code = 5.0 mmol/L 3.5-5.1 N K) CHLORIDE (test code = 102.0 mmol/L 98-107 N CL) CARBON DIOXIDE (test 28.8 mmol/L 21-32 N code = CO2) GLUCOSE (test code = 138 mg/dL 70-110 H GLU) BLOOD UREA NITROGEN 13 mg/dL 7-18 N (test code = BUN) GLOMERULAR FILTRATION 64.5 >60 Unit o f measure: RATE (test code = GFR) mL/mi n/1.73 p0Hvthgeiep Range:Healthy Adults >90 mL/min/1.73 m2 For Chronic Kidney Disease: St age II Mild Decrease in GFR 60-90 St age III Moderate Decrease in GFR 30-59 Stage IV Severe Decre ase in GFR 15- 29 Stage V Kidney Failure <15 CREATININE (test code 0.90 mg/dL 0.55-1.30 N = CREAT) CALCIUM (test code = 8.4 mg/dL 8.2-10.1 N CA) HGB [id number] 06:00:00 Test Item Value Reference Range Interpretation Comments HEMOGLOBIN (test code = HGB) 11.0 g/dL 12-16 L HEMATOCRIT (test code = HCT) 32.9 % 37-47 L SPECIMEN COMMENT: POD #1- XR KNEE 1 OR 2 V [id number] 12:18:00 [facility] 1965 Sex: F Patient Name: JOLYNN FREEDMAN Unit No: [id number] EXAMS: CPT CODE: [id number] XR KNEE 1 OR 2 V RT [id number] RIGHT KNEE 2 VIEWS PORTABLE COMMENT: The patient is status post joint replacement which is articulating normally. at 1218 Reported and signed by: Malcom Thomson MD CC: Melquiades Esposito MD Technologist: PHIL WHITT (RT.R) Transcribed D/ (8192) tMARYJCL [facility] NAME: JOLYNN FREEDMAN [address] [place] [address] PHYS: Melquiades Brantley MD : 1965 AGE: 55 SEX: F [place], [place] [address] LOC: Y.314 A PHONE #: [phone] EXAM DATE: 08/02/2020 STATUS: ADM IN FAX #: [phone] RAD #: D/C DT PAGE 1 Signed Report Patient Name: JOLYNN FREEDMAN Unit No: [id number] EXAMS: CPT CODE: [id number] XR KNEE 1 OR 2 V RT [id number] <Continued> Orig Print D/T: S: 08/02/2020 (3357) [facility] NAME: JOLYNN FREEDMAN [address] [facility] PHYS: Melquiades Brantley MD : 1965 AGE: 55 SEX: F [place] [address] LOC: Y.314 A PHONE #: [phone] EXAM DATE: 08/02/2020 STATUS: ADM IN FAX #: [phone] RAD #: D/C DT PAGE 2 Signed Report COMPREHENSIVE METABOLIC [id number] 17:17:00 Test Item Value Reference Range Interpretation Comments SODIUM (test code = 140 mmol/L 136-145 N NA) POTASSIUM (test code = 4.6 mmol/L 3.5-5.1 N K) CHLORIDE (test code = 101.0 mmol/L 98-107 N CL) CARBON DIOXIDE (test 29.4 mmol/L 21-32 N code = CO2) GLUCOSE (test code = 97 mg/dL 70-110 N GLU) BLOOD UREA NITROGEN 10 mg/dL 7-18 N (test code = BUN) GLOMERULAR FILTRATION 83.5 >60 Unit o f measure: RATE (test code = GFR) mL/mi n/1.73 x6Sdolirxom Range:Healthy Adults >90 mL/min/1.73 m2 For Chronic Kidney Disease: St age II Mild Decrease in GFR 60-90 St age III Moderate Decrease in GFR 30-59 Stage IV Severe Decre ase in GFR 15- 29 Stage V Kidney Failure <15 CREATININE (test code 0.72 mg/dL 0.55-1.30 N = CREAT) TOTAL PROTEIN (test 7.2 g/dL 6.4-8.2 N code = PROT) ALBUMIN (test code = 4.2 g/dL 3.4-5.0 N ALB) GLOBULIN (test code = 3.0 g/dL 2.2-4.2 N GLOB) ALBUMIN/GLOBULIN RATIO 1.4 0.7-2.0 N (test code = A/G) CALCIUM (test code = 9.7 mg/dL 8.2-10.1 N CA) BILIRUBIN TOTAL (test 0.50 mg/dL 0.2-1.00 N code = BILT) SGOT/AST (test code = 29.0 U/L 15-37 N AST) SGPT/ALT (test code = 49.0 U/L 12-78 N Please note new ALT) normal range. ALKALINE PHOSPHATASE 95 U/L 46-116 N TOTAL (test code = ALKP) CBC W/AUTO [id number] 16:33:00 Test Item Value Reference Range Interpretation Comments WHITE BLOOD CELL (test code = WBC) 5.3 K/mm3 5.8-11.0 L RED BLOOD CELL (test code = RBC) 4.32 M/mm3 4.2-5.4 N HEMOGLOBIN (test code = HGB) 13.6 g/dL 12-16 N HEMATOCRIT (test code = HCT) 39.7 % 37-47 N MEAN CELL VOLUME (test code = MCV) 92 fL 80-98 N MEAN CELL HGB (test code = MCH) 31.5 pg 27-34 N MEAN CELL HGB CONCENTRATION (test 34.3 g/dL 30.8-34.1 H code = MCHC) RED CELL DISTRIBUTION WIDTH (test 12.9 % 11-16 N code = RDW) PLT (test code = PLT) 213 K/mm3 130-400 N MEAN PLATELET VOLUME (test code = 10.4 fL 8.9-12.1 N MPV) NEUTROPHIL % (test code = NT%) 58.8 % 45-70 N LYMPHOCYTE % (test code = LY%) 29.9 % 20-40 N MONOCYTE % (test code = MO%) 9.2 % 3-10 N EOSINOPHIL % (test code = EO%) 1.3 % 1-5 N BASOPHIL % (test code = BA%) 0.4 % 0.0-1.1 N NEUTROPHIL # (test code = NT#) 3.12 K/mm3 2.00-7.50 N LYMPHOCYTE # (test code = LY#) 1.59 K/mm3 1.50-4.00 N MONOCYTE # (test code = MO#) 0.49 K/mm3 0.2-0.8 N EOSINOPHIL # (test code = EO#) 0.07 K/mm3 0.04-0.4 N BASOPHIL # (test code = BA#) 0.02 K/mm3 0.02-0.10 N MANUAL DIFF REQUIRED (test code = NO MANUAL DIFF MDIFF) NUCLEATED RED BLOOD CELL (test 0 % 0-0 N code = NRBC)
[2021-10-27] MEDS ORDERED: NA CHLORIDE 0.9% 1,000 ML ONE (16:32)
[2021-10-27 17:02] LABS: Absolute Lymphocytes (CBC) 1.6 K/uL (0.7-4.9); Hematocrit 41.6 % (36.0-45.0); Lymphocytes % 28.1 % (15.3-44.8); MPV 8.7 fL (7.6-11.3); RBC Red Blood Cell Count 4.51 M/uL (3.86-4.86)
[2021-10-27 17:06] LABS: Protime INR 1.04
--- NOTE | 2021-10-27 17:18 | RAD REPORT ---
EXAM DESCRIPTION: Annetta Single View10/27/2021 5:02 pm CLINICAL HISTORY: sob COMPARISON: 2019 FINDINGS: Calcified granuloma left lung. The lungs appear clear of acute infiltrate. The heart is normal size IMPRESSION: No acute abnormalities displayed
[2021-10-27 17:26] LABS: ALT/SGPT 97 U/L (12-78); AST/SGOT 55 U/L (15-37); Albumin 4.2 g/dL (3.4-5.0); Alkaline Phosphatase 98 U/L (45-117); BUN Blood Urea Nitrogen 11 mg/dL (7-18); Bicarbonate 30 mmol/L (21-32); Bilirubin Total 0.3 mg/dL (0.2-1.0); Glomerular Filtration Rate 81 mL/min (=/>90); Glucose Level 100 mg/dL (74-106); Magnesium 2.4 mg/dL (1.8-2.4); NT PRO-BNP 37 pg/mL (<125); Potassium 4.2 mmol/L (3.5-5.1); Protein, Total 7.4 g/dL (6.4-8.2); Sodium Level 136 mmol/L (136-145); Troponin High Sensitivity 5.8 pg/mL (<58.9)
--- NOTE | 2021-10-27 17:29 | EDPHYS ---
Physician Documentation [facility] Name: Olivia Powers Age: 56 yrs Sex: Female : 1965 Arrival Date: 10/27/2021 Time: 16:07 Bed 13 Private MD: Jimy Aguayo HPI: 10/27 17:22 This 56 yrs old Female presents to ER via Ambulatory with complaints of High ethan Blood Pressure, Breathing Difficulty, Headache. 17:22 The patient has elevated blood pressure and discovered this at home. Onset: The ethan symptoms/episode began/occurred 1 week(s) ago. Modifying factors: The symptoms are aggravated by activity, The symptoms are alleviated by remaining still. Historical: - Allergies: 16:14 No Known Allergies; jb4 - PMHx: 16:14 SVT; jb4 - PSHx: 16:14 Cholecystectomy; hysterectomy; ear; jb4 - Immunization history:: Adult Immunizations up to date. - Social history:: Smoking status: Patient denies any tobacco usage or history of. ROS: 17:22 Constitutional: Negative for fever, chills, and weight loss, Eyes: Negative for injury, ethan pain, redness, and discharge, ENT: Negative for injury, pain, and discharge, Neck: Negative for injury, pain, and swelling, Abdomen/GI: Negative for abdominal pain, nausea, vomiting, diarrhea, and constipation, Back: Negative for injury and pain, : Negative for injury, bleeding, discharge, and swelling, MS/Extremity: Negative for injury and deformity, Skin: Negative for injury, rash, and discoloration, Neuro: Negative for headache, weakness, numbness, tingling, and seizure. 17:22 Cardiovascular: Positive for chest pain, palpitations. 17:22 Respiratory: Positive for cough, shortness of breath, on exertion. Exam: 17:22 Constitutional: This is a well developed, well nourished patient who is awake, alert, ethan and in no acute distress. Head/Face: Normocephalic, atraumatic. Eyes: Pupils equal round and reactive to light, extra-ocular motions intact. Lids and lashes normal. Conjunctiva and sclera are non-icteric and not injected. Cornea within normal limits. Periorbital areas with no swelling, redness, or edema. ENT: Nares patent. No nasal discharge, no septal abnormalities noted. Tympanic membranes are normal and external auditory canals are clear. Oropharynx with no redness, swelling, or masses, exudates, or evidence of obstruction, uvula midline. Mucous membranes moist. Neck: Trachea midline, no thyromegaly or masses palpated, and no cervical lymphadenopathy. Supple, full range of motion without nuchal rigidity, or vertebral point tenderness. No Meningismus. Chest/axilla: Normal chest wall appearance and motion. Nontender with no deformity. No lesions are appreciated. Cardiovascular: Regular rate and rhythm with a normal S1 and S2. No gallops, murmurs, or rubs. Normal PMI, no JVD. No pulse deficits. Respiratory: Lungs have equal breath sounds bilaterally, clear to auscultation and percussion. No rales, rhonchi or wheezes noted. No increased work of breathing, no retractions or nasal flaring. Abdomen/GI: Soft, non-tender, with normal bowel sounds. No distension or tympany. No guarding or rebound. No evidence of tenderness throughout. Back: No spinal tenderness. No costovertebral tenderness. Full range of motion. Skin: Warm, dry with normal turgor. Normal color with no rashes, no lesions, and no evidence of cellulitis. MS/ Extremity: Pulses equal, no cyanosis. Neurovascular intact. Full, normal range of motion. Neuro: Awake and alert, GCS 15, oriented to person, place, time, and situation. Cranial nerves II-XII grossly intact. Motor strength 5/5 in all extremities. Sensory grossly intact. Cerebellar exam normal. Normal gait. Psych: Awake, alert, with orientation to person, place and time. Behavior, mood, and affect are within normal limits. 17:22 Musculoskeletal/extremity: DVT Exam: No signs of deep vein thrombosis. no pain, no swelling, no tenderness, negative Homans' sign noted on exam, no appreciated bluish discoloration, no erythema, no increased warmth. Vital Signs: 16:11 BP 158 / 94; Pulse 89; Resp 16; Temp 98.9(O); Pulse Ox 99% on R/A; Weight 95.25 kg (R); jb4 Height 5 ft. 6 in. (167.64 cm); Pain 4/10; 16:40 BP 137 / 84; Pulse 87; Resp 17; Pulse Ox 99% on R/A; ab2 17:46 BP 153 / 90; Pulse 71; Resp 17; Pulse Ox 100% on R/A; ab2 18:26 BP 151 / 88; Pulse 79; Resp 18; Pulse Ox 98% on R/A; ab2 20:08 BP 151 / 78; Pulse 72; Resp 16; Pulse Ox 99% ; Pain 5/10; ad1 21:14 BP 154 / 89; Pulse 72; Resp 16; Pulse Ox 99% ; ab2 16:11 Body Mass Index 33.89 (95.25 kg, 167.64 cm) jb4 MDM: 16:17 Patient medically screened. ethan 17:24 Antibiotic administration: Not indicated. Differential diagnosis: Anemia Malignant HTN. ethan HEART Score: History: Slightly Suspicious (0), ECG: Normal (0), Age: > 45 and < 65 years (1), Risk Factors: 1 or 2 risk factors (1), [Hypertension] [+ Family HX] [Obesity] Troponin: < or = 1 x Normal Limit (0). The patient was given aspirin in the Emergency Department. The patient's Wells Deep Vein Thrombosis Score was calculated as follows: Total Score: 0. This patient was found to be at low risk for a deep vein thrombosis by using the Well's assessment criteria Total Score: 0-2 Pts- Low Risk. The patient's pulmonary embolism risk score was calculated as follows: Total Score: 0-2 points. This patient was found to be at low risk for a pulmonary embolism by using the Well's assessment criteria Total Score: 0-2 points. This patient was found to be at low risk for a pulmonary embolism by using the Well's assessment criteria. HEYDI Risk Score: 1 - Three or more CAD risk factors, TOTAL SCORE = 1. Immunization status: Influenza vaccine: Not up to date. Data reviewed: vital signs, nurses notes, lab test result(s), EKG, radiologic studies, plain films. Data interpreted: monitoring manager: rate is 87 beats/min, rhythm is regular, Pulse oximetry: on room air. Test interpretation: by ED physician or midlevel provider: ECG, plain radiologic studies. 10/27 16:19 Order name: Basic Metabolic Panel; Complete Time: 18:25 [facility] 10/27 16:19 Order name: CBC with Diff; Complete Time: 17:20 [facility] 10/27 16:19 Order name: LFT's; Complete Time: 18:25 [facility] 10/27 16:19 Order name: Magnesium; Complete Time: 18:25 [facility] 10/27 16:19 Order name: NT PRO-BNP; Complete Time: 18:25 [facility] 10/27 16:19 Order name: PT-INR; Complete Time: 17:20 [facility] 10/27 16:19 Order name: Troponin HS; Complete Time: 18:25 [facility] 10/27 16:19 Order name: TSH; Complete Time: 18:25 [facility] 10/27 16:19 Order name: SARS-COV-2 RT PCR (Document "Date of Onset" if Symptomatic); Complete Time: [facility] 18:10/27 20:02 Order name: Urine Dipstick-Ancillary; Complete Time: 20:35 EDMS 10/27 20:39 Order name: Troponin High Sensitivity EDMS 10/27 20:39 Order name: Troponin High Sensitivity EDMS 10/27 20:39 Order name: Troponin High Sensitivity EDMS 10/27 16:19 Order name: XRAY Chest (1 view); Complete Time: 17:20 [facility] 10/27 16:19 Order name: EKG; Complete Time: 16:20 [facility] 10/27 16:19 Order name: Cardiac monitoring; Complete Time: 16:31 [facility] 10/27 16:19 Order name: EKG - Nurse/Tech; Complete Time: 16:10/27 16:19 Order name: IV Saline Lock; Complete Time: 16:31 ethan 10/27 16:19 Order name: Labs collected and sent; Complete Time: 16:31 [facility] 10/27 16:19 Order name: O2 Per Protocol; Complete Time: 16:31 [facility] 10/27 16:19 Order name: O2 Sat Monitoring; Complete Time: 16:31 [facility] 10/27 16:19 Order name: Urine Dipstick-Ancillary (obtain specimen); Complete Time: 21:04 [facility] 10/27 20:39 Order name: Echo with Doppler EDMS Administered Medications: 16:31 Drug: NS 0.9% 1000 ml Route: IV; Rate: 75 ml/hr; Site: right antecubital; ab2 17:45 Drug: Pepcid (famotidine) 20 mg Route: IVP; Site: right antecubital; ab2 17:46 Drug: Aspirin Chewable Tablet 324 mg Route: PO; ab2 17:46 Drug: Lovenox (enoxaparin) 1 mg/kg Route: Sub-Q; Site: right upper arm; ab2 20:05 Not Given (Hemodynamic Parameters): Lopressor (metoprolol TARTRATE) 50 mg PO once ab2 21:02 Drug: Ketorolac 15 mg Route: IVP; Site: right antecubital; ab2 Disposition Summary: 10/27/21 17:28 Hospitalization Ordered Hospitalization Status: Observation ethan Provider: Amparo Rivera cha Condition: Stable ethan Problem: new ethan Symptoms: have improved ethan Bed/Room Type: Standard ethan Location: Telemetry/MedSurg (observation)(10/27/21 19:31) mw Room Assignment: 204(10/27/21 20:38) mw Diagnosis - Angina pectoris, unspecified ethan - Dyspnea ethan Forms: - Medication Reconciliation Form ethan - SBAR form ethan Signatures: Dispatcher [employer] EDMarsha Augustine RN RN mw Anderson, Corey, MD MD cha Bryson, James, RN RN jb4 Christofer Ramon2 Adelaida Robins PA PA sb3 Corrections: (The following items were deleted from the chart) 16:15 16:14 PSHx: DNC; ebonie jb4 19:28 17:28 [facility] 19:31 17:28 Telemetry/MedSurg (observation) [facility] 19:31 19:28 204 mw mw 20:38 19:31 mw mw
--- NOTE | 2021-10-27 17:29 | ER ---
Nurse's Notes [facility] Name: Olivia Powers Age: 56 yrs Sex: Female : 1965 Arrival Date: 10/27/2021 Time: 16:07 Bed 13 Private MD: Diagnosis: Angina pectoris, unspecified;Dyspnea Presentation: 10/27 16:11 Chief complaint: Patient states: I have been having an elevated heart rate with any jb4 exertion. It has been getting more difficult to breath and now my blood pressure is going up. I tried to go see my Dr. but they said they cannot see me until the 11/27. My headache has just been getting worse and worse. Coronavirus screen: At this time, the client does not indicate any symptoms associated with coronavirus-19. Ebola Screen: No symptoms or risks identified at this time. Initial Sepsis Screen: Does the patient meet any 2 criteria? No. Patient's initial sepsis screen is negative. Does the patient have a suspected source of infection? No. Patient's initial sepsis screen is negative. Risk Assessment: Do you want to hurt yourself or someone else? Patient reports no desire to harm self or others. Onset of symptoms was October 15, 2021. Transition of care: patient was not received from another setting of care. 16:11 Method Of Arrival: Ambulatory jb4 16:11 Acuity: RITO 3 jb4 Historical: - Allergies: 16:14 No Known Allergies; jb4 - PMHx: 16:14 SVT; jb4 - PSHx: 16:14 Cholecystectomy; hysterectomy; ear; jb4 - Immunization history:: Adult Immunizations up to date. - Social history:: Smoking status: Patient denies any tobacco usage or history of. Screenin:40 Abuse screen: Denies threats or abuse. Denies injuries from another. Nutritional ab2 screening: No deficits noted. Tuberculosis screening: No symptoms or risk factors identified. Fall Risk None identified. Assessment: 16:38 General: Appears in no apparent distress. comfortable, Behavior is calm, cooperative, ab2 appropriate for age. Pain: Complains of pain in anterior aspect of right shoulder. Neuro: Level of Consciousness is awake, alert, obeys commands, Oriented to person, place, time, situation, Appropriate for age Shear Grinder Operator Helper are equal bilaterally Moves all extremities. Gait is steady, Speech is normal, Facial symmetry appears normal, Reports headache. Cardiovascular: Reports chest pain, shortness of breath, Heart tones S1 S2 present Patient's skin is warm and dry. Rhythm is sinus rhythm. Respiratory: No deficits noted. Airway is patent Respiratory effort is even, unlabored, Respiratory pattern is regular, symmetrical, Breath sounds are clear bilaterally. GI: No deficits noted. No signs and/or symptoms were reported involving the gastrointestinal system. : No deficits noted. No signs and/or symptoms were reported regarding the genitourinary system. EENT: No deficits noted. No signs and/or symptoms were reported regarding the EENT system. Derm: Skin is intact, is healthy with good turgor, Skin is pink, warm \\T\\ dry. 20:09 Reassessment: Patient and/or family updated on plan of care and expected duration. Pain ad1 level reassessed. Patient is alert, oriented x 3, equal unlabored respirations, skin warm/dry/pink. reports pain to head and neck 5/10. Vital Signs: 16:11 BP 158 / 94; Pulse 89; Resp 16; Temp 98.9(O); Pulse Ox 99% on R/A; Weight 95.25 kg (R); jb4 Height 5 ft. 6 in. (167.64 cm); Pain 4/10; 16:40 BP 137 / 84; Pulse 87; Resp 17; Pulse Ox 99% on R/A; ab2 17:46 BP 153 / 90; Pulse 71; Resp 17; Pulse Ox 100% on R/A; ab2 18:26 BP 151 / 88; Pulse 79; Resp 18; Pulse Ox 98% on R/A; ab2 20:08 BP 151 / 78; Pulse 72; Resp 16; Pulse Ox 99% ; Pain 5/10; ad1 21:14 BP 154 / 89; Pulse 72; Resp 16; Pulse Ox 99% ; ab2 16:11 Body Mass Index 33.89 (95.25 kg, 167.64 cm) jb4 ED Course: 16:07 Patient arrived in ED. mr 16:14 Triage completed. jb4 16:14 Arm band placed on right wrist. jb4 16:17 Jimy Garcia MD is Attending Physician. [facility] 16:30 Christofer Ramon is Primary Nurse. ab2 16:31 Basic Metabolic Panel Sent. ab2 16:31 CBC with Diff Sent. ab2 16:31 LFT's Sent. ab2 16:32 Magnesium Sent. ab2 16:32 NT PRO-BNP Sent. ab2 16:32 PT-INR Sent. ab2 16:32 Troponin HS Sent. ab2 16:38 SARS-COV-2 RT PCR (Document "Date of Onset" if Symptomatic) Sent. ab2 16:40 Patient has correct armband on for positive identification. Side rails up X2. ab2 16:40 No provider procedures requiring assistance completed. ab2 16:41 monitoring specialist on. Pulse ox on. NIBP on. ab2 17:04 XRAY Chest (1 view) In Process Unspecified. EDMS 17:26 Amparo Rivera MD is Hospitalizing Provider. [facility] 21:18 Patient admitted, IV remains in place. ab2 Administered Medications: 16:31 Drug: NS 0.9% 1000 ml Route: IV; Rate: 75 ml/hr; Site: right antecubital; ab2 17:45 Drug: Pepcid (famotidine) 20 mg Route: IVP; Site: right antecubital; ab2 17:46 Drug: Aspirin Chewable Tablet 324 mg Route: PO; ab2 17:46 Drug: Lovenox (enoxaparin) 1 mg/kg Route: Sub-Q; Site: right upper arm; ab2 20:05 Not Given (Hemodynamic Parameters): Lopressor (metoprolol TARTRATE) 50 mg PO once ab2 21:02 Drug: Ketorolac 15 mg Route: IVP; Site: right antecubital; ab2 Outcome: 17:28 Decision to Hospitalize by Provider. ethan 21:18 Admitted to Med/surg accompanied by tech, via wheelchair. ab2 21:18 Condition: good 21:27 Patient left the ED. ab2 Signatures: Dispatcher [employer] EDJimy Lozada MD MD cha Rivera, Caitlin mr Latanya Dixon RN RN ad1 Christophe Galindo RN RN jb4 Christofer Ramon ab2 Corrections: (The following items were deleted from the chart) 16:15 16:14 PSHx: DNC; jb4 jb4 18:27 18:26 BP 151 / 88; Pulse 79bpm; Resp 18bpm; Pulse Ox 98% RA; ab2 ab2
[2021-10-27] MEDS ORDERED: FAMOTIDINE 20 MG/2 ML VIAL IV ONE (17:37)
[2021-10-27] MEDS ORDERED: ENOXAPARIN 100 MG/ML SYR SQ ONE (17:37)
[2021-10-27] MEDS ORDERED: METOPROLOL TAR 50 MG TAB ONE (17:37)
[2021-10-27] MEDS ORDERED: ASPIRIN 81 MG CHEWABLE TABLET ONE (17:37)
[2021-10-27 17:39] LABS: Bilirubin Direct < 0.1 mg/dL (0-0.2)
[2021-10-27 20:02] LABS: Urine Blood Trace-intact (Negative); Urine Glucose Negative (Negative); Urine Protein Negative (Negative); Urine Specific Gravity >=1.030 (1.005-1.030); Urine pH 6.5 (5.0-7.0)
[2021-10-27] MEDS ORDERED: KETOROLAC 30 MG/ML INJ ONE (20:17)
[2021-10-27] MEDS ORDERED: METOPROLOL TAR 25 MG TAB PO ONE (21:49)
[2021-10-27] MEDS ORDERED: ONDANSETRON 4 MG/2 ML VIAL IV PRN (21:49)
[2021-10-27] MEDS ORDERED: clonazePAM 0.5 MG TAB PO PRN (21:49)
--- NOTE | 2021-10-27 21:49 | P.HP ---
Certification for Inpatient Patient admitted to: Observation With expected LOS: <2 Midnights Patient will require the following post-hospital care: None Practitioner: I am a practitioner with admitting privileges, knowledge of patient current condition, hospital course, and medical plan of care. Services: Services provided to patient in accordance with Admission requirements found in Title 42 Section 412.3 of the Code of Federal Regulations <Adelaida Robins - Last Filed: 10/27/21 21:44> Patient History Date of Service: 10/27/21 Reason for admission: ACS R/O History of Present Illness: Patient is a 56-year-old female with past medical history of SVT who presented to the ED with complaints of headache, shortness of breath, and elevated blood pressure. She also complains of right-sided neck pain. she states that she has noticed the symptoms for a couple of days now and tried to get an appointment with Dr. Cooley but could not get in until next month so she decided to get evaluated in the ED. EKG negative for acute findings. Labs within normal limits. She was given 324 mg of aspirin and therapeutic dose L ovenox. Patient states that she has seen cardiology in the past because she developed SVT after having COVID but has since resolved. she states that she has had an echo and stress test many years ago that were normal. Upon my assessment, patient is only complaining of a headache. She denies any chest pain. ED provider wishes to admit for observation. Home medications list reviewed: Yes - Past Medical/Surgical History Diabetic: No -: SVT -: lap D&C -: rick -: hysterectomy -: R ear surgery bone and ear drum, and repair Psychosocial/ Personal History: Patient works at a home health nurse. - Family History Mother -: Hypertension, Diabetes - Social History Smoking Status: Former smoker Alcohol use: Yes CD- Drugs: No Caffeine use: Yes Place of Residence: Home <ShimonAdelaida - Last Filed: 10/27/21 21:44> Date of Service: 10/27/21 <Amparo Rivera - Last Filed: 11/13/21 03:31> Allergies No Known Allergies Allergy (Verified 10/27/21 21:52) Home Medications: Acetaminophen [Tylenol Extra Strength] 500 mg PO DAILY PRN 10/27/21 Calcium Carbonate [Tums X-Str] 300 mg PO Q4HP PRN 10/27/21 Mag Hydrox/Aluminum Hyd/Simeth [Mylanta Maximum Strength Liq] 30 ml PO DAILY PRN 10/27/21 Methylprednisolone [Medrol dosepack] 4 mg PO DIRECTED #1 maximo 10/28/21 Metoprolol Tartrate [Lopressor*] 25 mg PO BID #30 tab 10/28/21 Aspirin [Aspirin EC 81 MG] 162 mg PO DAILY #30 tablet. 10/29/21 Atorvastatin Calcium [Lipitor] 20 mg PO BEDTIME #30 tab 10/29/21 Review of Systems 10-point ROS is otherwise unremarkable General: Other (Headache) <Adelaida Robins - Last Filed: 10/27/21 21:44> Physical Examination - Vital Signs Temperature: 98.9 F Blood Pressure: 154/89 Pulse: 72 Respirations: 16 - Physical Exam General: Alert, In no apparent distress, Oriented x3 HEENT: Atraumatic, PERRLA, Mucous membr. moist/pink, EOMI, Sclerae nonicteric Neck: Supple, 2+ carotid pulse no bruit, No LAD, Without JVD or thyroid abnormality Respiratory: Clear to auscultation bilaterally, Normal air movement Cardiovascular: No edema, Normal pulses, Regular rate/rhythm, Normal S1 S2, No murmurs Gastrointestinal: Normal bowel sounds, No tenderness Musculoskeletal: No tenderness Integumentary: No rashes Neurological: Normal speech, Normal strength at 5/5 x4 extr, Normal tone, Normal affect - Studies Laboratory Data (last 24 hrs) 10/27/21 16:32: PT 11.5, INR 1.04 10/27/21 16:32: WBC 5.7, Hgb 14.3, Hct 41.6, Plt Count 179 10/27/21 16:32: Sodium 136, Potassium 4.2, BUN 11, Creatinine 0.74, Glucose 100, Magnesium 2.4, Total Bilirubin 0.3, AST 55 H, ALT 97 H, Alkaline Phosphatase 98 <Adelaida Robins - Last Filed: 10/27/21 21:44> Assessment and Plan - Problems (Diagnosis) (1) ACS (acute coronary syndrome) Status: Acute (2) Hypertension Status: Acute Qualifiers: Hypertension type: unspecified Qualified Code(s): I10 - Essential (primary) hypertension (3) Shortness of breath Status: Acute (4) Headache Status: Acute Qualifiers: Headache type: unspecified Headache chronicity pattern: acute headache Intractability: not intractable Qualified Code(s): R51.9 - Headache, unspecified (5) H/O supraventricular tachycardia Status: Chronic - Plan -Patient initially complaining of elevated blood pressure and heart rate with shortness of breath and headache. She denies chest pain -Work-up in the ED was negative. Will check troponin every 6 hours x2. Cardiology consulted, echo ordered -She was given aspirin and Lovenox in the ED. Atorvastatin ordered for bedtime and aspirin daily -Metoprolol for elevated blood pressure -Monitor on telemetry overnight Discharge Plan: Home Plan to discharge in: 24 Hours - Advance Directives Does patient have a Living Will: No Does patient have a Durable POA for Healthcare: No - Code Status/Comfort Care Code Status Assessed: Yes (Full) Critical Care: No Time Spent Managing Pts Care (In Minutes): 50 <Adelaida Robins - Last Filed: 10/27/21 21:44> Date of Service: 10/27/21 Subjective: HPI as mentioned above Physical Examination: Vitals: Afebrile vital signs are stable Physical exam: Cardiovascular: Within normal limits. Lungs: Within normal limits Abdomen: Within normal limits Neuro: Awake, alert, oriented to person place and time Assessment: 1. Chest pain rule out acute coronary syndrome Plan: 1. Continue with current plan of care as mentioned above <Amparo Rivera - Last Filed: 11/13/21 03:31>
[2021-10-27 21:57] VITALS: BMI 34.6
[2021-10-27] MEDS: ATORVASTATIN 40 MG TAB PO SCH (22:40)
[2021-10-27 22:53] LABS: Urine Appearance Clear (Clear); Urine Bilirubin Negative (Negative); Urine Blood Trace-intact (Negative); Urine Color Yellow (Yellow); Urine Glucose Negative (Negative); Urine Microscopic Reflex ORDER UMIC; Urine Protein Negative (Negative); Urine Specific Gravity >=1.030 (1.005-1.030); Urine Urobilinogen 0.2 mg/dL (0.2-1.0)
[2021-10-27 23:00] LABS: Urine Bacteria >50 /HPF (<20); Urine Mucus 3+ /HPF (NONE SEEN); Urine RBC <5 /HPF (NONE SEEN)
[2021-10-28 06:09] LABS: Troponin High Sensitivity 8.4 pg/mL (<58.9)
[2021-10-28] MEDS: ASPIRIN 81 MG CHEWABLE TABLET PO SCH (09:28)
[2021-10-28] MEDS: ENOXAPARIN 40 MG/0.4 ML SQ SCH (09:29)
[2021-10-28] MEDS: ACETAMINOPHEN 500 MG TAB PO PRN ×2 (09:34→20:38)
[2021-10-28] MEDS ORDERED: HYDROCORTISONE SUC 100 MG INJ IV ONE (14:00)
--- NOTE | 2021-10-28 15:19 | RAD REPORT ---
EXAM DESCRIPTION: CT - Chest For Pe Angio - 10/28/2021 3:07 pm CLINICAL HISTORY: Chest pain. pe COMPARISON: No comparisons TECHNIQUE: CT angiogram of the pulmonary arteries was performed with MIP. All CT scans are performed using dose optimization technique as appropriate and may include automated exposure control or mA/KV adjustment according to patient size. FINDINGS: No evidence of pulmonary thromboembolism. No acute aortic finding demonstrated. The lungs are clear. No significant pericardial or pleural fluid. No concerning bony finding. Prominent fatty liver. IMPRESSION: No evidence of pulmonary thromboembolism. No acute lung findings.
--- NOTE | 2021-10-28 19:18 | CON ---
Date of Consultation: 10/28/2021 Reason For Consultation: Chest pain. History Of Present Illness: A 56-year-old female, history of SVT, presented with complaint of shortn ess of breath on minimal exertion, elevated blood pressure, and right-sided chest pain that radiates to her right side of the neck that is getting worse lately, so she presented to the emergency room, a nd since she got admitted, she still gets periodic shortness of breath and chest pain with minimal ex ertion. Past Medical History: As outlined above in the HPI. Medications: Refer to reconciliation sheet for detailed list. Allergies: NO KNOWN DRUG ALLERGIES. Family History: No premature coronary artery disease. Has history of coronary artery disease but la ter in life. Social History: She does not smoke or drink. Does not use any drugs. Review of Systems: All systems reviewed and they were negative except as mentioned in HPI. Physical Examination: Vital Signs: Temperature is 98.0, pulse 78, breathing 16, blood pressure 115/56, saturating 97% on r oom air. General: Pleasant middle-aged female, in no apparent distress. Head and Neck: Pupils are equal, reactive to light. Intact eye movements. No JVD. No cervical lym phadenopathy. Neck: Supple. Thyroid is not enlarged. Lungs: Clear to auscultation bilaterally. No rhonchi, rales, or crackles. No accessory muscle use. Heart: Regular rate and rhythm. No extra sounds. Abdomen: Soft, nontender. Bowel sounds positive. No organomegaly. No masses or hernia. No rigidi ty or rebound. Extremities: No edema, clubbing, cyanosis. Intact pulses. Skin: No rashes. Neurologic: Alert, awake, oriented x3. No acute focal deficits appreciated. Investigations: Hemoglobin is 14.3, creatinine 0.74. Highly sensitive troponins were negative. Assessment And Recommendations: Shortness of breath on minimal exertion with chest pain and minimal cough. I recommend to do a CT scan of the chest with IV contrast to further evaluate possibility of pneumonia or PE. If that rules out, then we will plan on further ischemic workup. The patient will need at least a stress test done. I recommend at this point to continue Lovenox, however, to use the rapeutic dose 1 mg/kg subcu q.12 hours, baby aspirin 81 mg daily. CTA of the lungs to be done today and observe for the next [address] is negative and patient continues to be symptomatic, then radha maddox will plan for coronary angiogram on Saturday. /KATERINA Voice ID: [id number] Report ID: [id number]
[2021-10-28] MEDS: FAMOTIDINE 20 MG TAB PO SCH (20:38)
[2021-10-28] MEDS: ATORVASTATIN 40 MG TAB PO SCH (20:39)
[2021-10-29 06:14] VITALS: O2SAT 99
[2021-10-29] MEDS: ENOXAPARIN 40 MG/0.4 ML SQ SCH (08:45)
[2021-10-29] MEDS: FAMOTIDINE 20 MG TAB PO SCH (08:46)
[2021-10-29] MEDS: ASPIRIN 81 MG CHEWABLE TABLET PO SCH (08:46)
[2021-10-29] MEDS: ACETAMINOPHEN 500 MG TAB PO PRN (12:00)
[2021-10-29 12:23] VITALS: BP 123/99; TEMP 98
--- NOTE | 2021-10-29 18:48 | PN ---
Date of Progress Note: 10/29/2021 Subjective: Seen by bedside. Doing clinically well. No further chest pain. She is walking around without chest pain. Review of Systems: No chest pain, shortness of breath, orthopnea, cough. No nausea, vomiting, diarrhea. No abdominal p ain. No dysuria, polyuria, or urgency. All other systems reviewed are negative. Physical Examination: Vital Signs: Reviewed. Head and Neck: Pupils are equal, reactive to light. Intact eye movements. No JVD. No cervical lym phadenopathy. Neck is supple. Thyroid is not enlarged. Lungs: Clear to auscultation bilaterally. No rhonchi, rales, or crackles. No accessory muscle use. Heart: Regular rate and rhythm. No extra sounds. Abdomen: Soft, nontender. Bowel sounds positive. No organomegaly. No masses or hernia. No rigidi ty or rebound. Extremities: No edema, clubbing, or cyanosis. Intact pulses. Skin: No rash noted. Neurologic: Alert, awake, oriented x3. No acute focal deficits appreciated. Lymph Node: No cervical or axillary lymphadenopathy. Investigations: Labs reviewed. Assessment And Recommendations: Chest pain with exertion. Has some typical features; however, the p atient has been pain free and high-sensitivity troponin x3 are negative. From cardiac standpoint, th e patient can be released my office tomorrow and we will set her up for exercise stress test as an outpatient. /DARWINL Voice ID: [id number] Report ID: [id number]
--- NOTE | 2021-11-13 03:30 | P.PN ---
Date of Service: 10/28/21 Subjective Patient has been ruled out for acute coronary syndrome. Cardiac to do further intervention Physical Examination - Vital Signs Reviewed - Physical Exam General: Alert, In no apparent distress, Oriented x3 Respiratory: Clear to auscultation bilaterally, Normal air movement Cardiovascular: No edema, Normal pulses, Regular rate/rhythm, Normal S1 S2, No murmurs Gastrointestinal: Normal bowel sounds, No tenderness Musculoskeletal: No tenderness Neurological: No focal deficits Assessment and Plan - Problems (Diagnosis) (1) ACS (acute coronary syndrome) Current Visit: Yes Status: Acute (2) Hypertension Current Visit: Yes Status: Acute Qualifiers: Hypertension type: unspecified Qualified Code(s): I10 - Essential (primary) hypertension (3) Shortness of breath Current Visit: Yes Status: Acute (4) Headache Current Visit: Yes Status: Acute Qualifiers: Headache type: unspecified Headache chronicity pattern: acute headache Intractability: not intractable Qualified Code(s): R51.9 - Headache, unspecified (5) H/O supraventricular tachycardia Current Visit: No Status: Chronic - Plan -High-sensitivity troponin -Cardiology consultation -Echocardiogram and stress test per cardiology recommendation -Repeat EKG -Work-up for other etiologies of cardiac chest pain if troponins remain negative -Lipid profile -Brick Offbearer regarding modifying risk for cardiac disease
--- NOTE | 2021-11-13 03:32 | P.DS ---
Discharge Date: 10/29/21 Disposition: ROUTINE DISCHARGE Discharge Condition: GOOD Reason for Admission: ACS R/O Brief History of Present Illness: Patient is a 56-year-old female with past medical history of SVT who presented to the ED with complaints of headache, shortness of breath, and elevated blood pressure. She also complains of right-sided neck pain. she states that she has noticed the symptoms for a couple of days now and tried to get an appointment with Dr. Cooley but could not get in until next month so she decided to get evaluated in the ED. EKG negative for acute findings. Labs within normal limits. She was given 324 mg of aspirin and therapeutic dose Lovenox. Patient states that she has seen cardiology in the past because she developed SVT after having COVID but has since resolved. she states that she has had an echo and stress test many years ago that were normal. Upon my assessment, patient is only complaining of a headache. She denies any chest pain. ED provider wishes to admit for observation. Hospital Course: Patient will be ruled out for acute coronary syndrome. Patient troponins are negative. EKG is negative. Patient will continue with current plan of care at this time. Patient will have outpatient follow-up with cardiology for further testing. Vital Signs/Physical Exam: Temp Pulse Resp BP Pulse Ox 98.0 F 82 14 123/99 H 98 10/29/21 12:00 10/29/21 12:00 10/29/21 12:00 10/29/21 12:00 10/29/21 12:00 General: Alert, In no apparent distress, Oriented x3 Laboratory Data at Discharge: WBC 5.7 K/uL (4.3-10.9) 10/27/21 16:32 Hgb 14.3 g/dL (12.0-15.0) 10/27/21 16:32 Hct 41.6 % (36.0-45.0) 10/27/21 16:32 Plt Count 179 K/uL (152-406) 10/27/21 16:32 PT 11.5 SECONDS (9.5-12.5) 10/27/21 16:32 INR 1.04 10/27/21 16:32 Sodium 136 mmol/L (136-145) 10/27/21 16:32 Potassium 4.2 mmol/L (3.5-5.1) 10/27/21 16:32 BUN 11 mg/dL (7-18) 10/27/21 16:32 Creatinine 0.74 mg/dL (0.55-1.3) 10/27/21 16:32 Glucose 100 mg/dL (74-106) 10/27/21 16:32 Magnesium 2.4 mg/dL (1.8-2.4) 10/27/21 16:32 Total Bilirubin 0.3 mg/dL (0.2-1.0) 10/27/21 16:32 AST 55 U/L (15-37) H 10/27/21 16:32 ALT 97 U/L (12-78) H 10/27/21 16:32 Alkaline Phosphatase 98 U/L (45-117) 10/27/21 16:32 Triglycerides 135 mg/dL (<150) 10/28/21 05:12 Cholesterol 197 mg/dL (<200) 10/28/21 05:12 HDL Cholesterol 61 mg/dL (40-60) H 10/28/21 05:12 Cholesterol/HDL Ratio 3.23 10/28/21 05:12 Home Medications: Acetaminophen [Tylenol Extra Strength] 500 mg PO DAILY PRN 10/27/21 Calcium Carbonate [Tums X-Str] 300 mg PO Q4HP PRN 10/27/21 Mag Hydrox/Aluminum Hyd/Simeth [Mylanta Maximum Strength Liq] 30 ml PO DAILY PRN 10/27/21 Methylprednisolone [Medrol dosepack] 4 mg PO DIRECTED #1 maximo 10/28/21 Metoprolol Tartrate [Lopressor*] 25 mg PO BID #30 tab 10/28/21 Aspirin [Aspirin EC 81 MG] 162 mg PO DAILY #30 tablet. 10/29/21 Atorvastatin Calcium [Lipitor] 20 mg PO BEDTIME #30 tab 10/29/21 New Medications: Aspirin [Aspirin EC 81 MG] 162 mg PO DAILY #30 tablet. Atorvastatin Calcium [Lipitor] 20 mg PO BEDTIME #30 tab Metoprolol Tartrate [Lopressor*] 25 mg PO BID #30 tab Methylprednisolone [Medrol dosepack] 4 mg PO DIRECTED #1 maximo Physician Discharge Instructions: -DC IV and DC home -Follow-up with PCP in 1 to 2 weeks -Follow-up with Cardiology in 1 to 2 weeks -Please call Dr. Rivera at [phone] if any questions regarding hospital stay -Please call nursing station at [phone] if any nursing or medication questions -Return to the emergency room if symptoms worsen Diet: AHA Activity: Fall precautions Followup: David Jj MD [ACTIVE - CAN ADMIT] - 1-2 Weeks (call to schedule an appointment ) Time spent managing pt's care (in minutes): 35
== END 2021-10-29 16:21 | disposition home or self-care (01) ==
LOC: ER 16:03 → ERHOLD 20:32 → 2ND 21:11
PROVIDERS: ADMIT Hospitalist; ATTEND Hospitalist
DX: R07.9 Chest pain, unspecified (principal); I10 Essential (primary) hypertension; R51.9 Headache, unspecified; R06.02 Shortness of breath; R05.9 Cough, unspecified; I47.1 Supraventricular tachycardia; M54.2 Cervicalgia; Z79.82 Long term (current) use of aspirin; Z79.899 Other long term (current) drug therapy; Z20.822 Contact with and (suspected) exposure to COVID-19; Z86.16 Personal history of COVID-19; Z87.891 Personal history of nicotine dependence; Z90.49 Acquired absence of other specified parts of digestive tract; Z90.710 Acquired absence of both cervix and uterus; Z82.49 Family history of ischemic heart disease and other diseases of the circulatory system; Z83.3 Family history of diabetes mellitus
CPT/HCPCS: 93005; 87088; 85025; 87086; 80048; 36415; 83735; 85610; 80061; 80076; 84443; 83036; 84484 ×3; 84439; 83880; 71275; 71045; 96375; 96372; 96374; 99285; U0003; Q9967; J1650 ×3; J7030; J1720; J3490; G0378 ×3; 81003; 81015

== ENCOUNTER 2024-05-20 16:51 | Observation (INO) | payer OTHER ==
--- NOTE | 2024-05-20 17:54 | RAD REPORT ---
EXAMINATION: ONE VIEW CHEST XR CLINICAL INDICATION: CHEST PAIN TECHNIQUE: Frontal chest projection is submitted. Examination is limited by patient positioning and t echnique. COMPARISON: 02/13/2023 FINDINGS: Small calcified granuloma left lower lung. Interstitial markings are mildly prominent. The heart is n ormal in size. No displaced fractures identified. IMPRESSION: No acute intrathoracic abnormalities. Chronic bronchitis pattern.
[2024-05-20 18:13] LABS: Absolute Eosinophils 0.1 K/uL (0-0.5); Absolute Lymphocytes (CBC) 1.5 K/uL (0.7-4.9); Absolute Monocytes 0.4 K/uL (0.1-1.3); Absolute Neutrophil 3.2 K/uL (1.8-8.0); Basophils % 0.6 % (0-1.3); Eosinophils % 1.2 % (0-4.4); Hemoglobin 13.6 g/dL (12.0-15.0); Lymphocytes % 29.2 % (15.3-44.8); MCH 29.6 pg (27.0-35.0); MCHC 33.9 g/dL (32.0-36.0); MCV 87.5 fL (80-100); MPV 8.3 fL (7.6-11.3); Monocytes % 8.1 % (3.3-12.3); Neutrophils % 60.9 % (41.7-73.7); Nucleated Red Blood Cells % 0.1 % (0-0); Platelets 192 thou/uL (152-406); RBC Red Blood Cell Count 4.58 M/uL (3.86-4.86); Red Cell Distribution Width 13.3 % (12.1-15.2)
[2024-05-20 18:17] LABS: Protime INR 1.17
[2024-05-20 18:32] LABS: Troponin High Sensitivity 3.7 pg/mL (<58.9)
[2024-05-20] MEDS ORDERED: ASPIRIN 81 MG CHEWABLE TABLET ONE (18:40)
[2024-05-20] MEDS ORDERED: IBUPROFEN 400 MG TAB ONE (18:45)
[2024-05-20] MEDS ORDERED: IBUPROFEN 200 MG TAB PO ONE (18:45)
--- NOTE | 2024-05-20 18:48 | EDPHYS ---
Physician Documentation [facility] Name: Olivia Powers Age: 59 yrs Sex: Female : 1965 Arrival Date: 05/20/2024 Time: 16:51 Bed 6 Private MD: ED Physician Kristopher Ibarra HPI: 05/20 17:28 This 59 yrs old Female presents to ER via Ambulatory with complaints of Chest Pain - rn abnormal stress test, Headache. 17:28 The patient or guardian reports chest pain that is located primarily in the substernal rn area. Onset: at an unknown time. The pain does not radiate. Associated signs and symptoms: Pertinent positives: palpitations, shortness of breath, Pertinent negatives: abdominal pain, cough. The chest pain is described as a heaviness. Duration: The patient or guardian reports multiple episodes, that are intermittent. Modifying factors: The symptoms are alleviated by nothing. the symptoms are aggravated by exertion. Severity of pain: At its worst the pain was moderate in the emergency department the pain has improved. The patient has experienced similar episodes in the past. Patient reports intermittent chest pain for some time now, seen Dr. Jj today and told has abnormal stress. Started to have more chest pain when she went home especially with exertion so told to come back in for further evaluation. Chest pain has improved. Has history of SVT and sinus tachycardia but never required stent or had valvular problem. No abdominal pain. No fever or cough.. Historical: - Allergies: 17:23 No Known Allergies; ko1 - PMHx: 17:23 SVT; ko1 - PSHx: 17:23 Cholecystectomy; ear; hysterectomy; ko1 - Immunization history:: Adult Immunizations unknown. - Infectious Disease History:: Denies. - Social history:: Smoking status: Patient/guardian denies using tobacco, but has a distant history of tobacco abuse. - Family history:: not pertinent. - Hospitalizations: : No recent hospitalization is reported. ROS: 17:28 Constitutional: Negative for fever, chills, and weight loss, Neck: Negative for injury, rn pain, and swelling, Cardiovascular: Positive for chest pain Respiratory: Negative for cough, wheezing, and pleuritic chest pain, Abdomen/GI: Negative for abdominal pain, nausea, vomiting, diarrhea, and constipation, MS/Extremity: Negative for injury and deformity, Skin: Negative for injury, rash, and discoloration, Neuro: Negative for weakness, numbness, tingling, and seizure, Exam: 17:28 ECG was reviewed by the Attending Physician. rn 17:28 Constitutional: This is a well developed, well nourished patient who is awake, alert, rn and in no acute distress. Cardiovascular: Regular rate and rhythm. No pulse deficits. Respiratory: No increased work of breathing, no retractions or nasal flaring. Abdomen/GI: Soft, non-tender MS/ Extremity: Pulses equal, no cyanosis. Neurovascular intact. Full, normal range of motion. Equal circumference. Neuro: Awake and alert, GCS 15 Vital Signs: 17:13 BP 123 / 74; Pulse 78; Resp 18; Temp 97.3; Pulse Ox 100% ; ko1 18:38 BP 119 / 78; Pulse 72; Resp 15; Pulse Ox 99% on R/A; ll1 MDM: 17:11 Medical Screening Exam initiated rn 18:46 Differential diagnosis: acute myocardial infarction, acute pericarditis, anxiety, rn coronary artery disease chest wall pain, pneumothorax, stable angina, unstable angina. HEART Score: History: Moderately Suspicious (1), ECG: Normal (0), Age: > 45 and < 65 years (1), Risk Factors: 1 or 2 risk factors (1), Troponin: < or = 1 x Normal Limit (0), Total Score = 3. The patient was given aspirin in the Emergency Department. Data reviewed: vital signs, nurses notes, lab test result(s), EKG, radiologic studies, plain films, and as a result, I will discharge patient. Counseling: I had a detailed discussion with the patient and/or guardian regarding the historical points, exam findings, and any diagnostic results supporting the discharge/admit diagnosis, lab results, radiology results, the need for further work-up and treatment in the hospital. ED course: Heart score 3 but patient reports told she had abnormal stress. Given increase in chest pain during stress test and with exertion will admit to hospitalist service for cardiology consultation.. 05/20 17:12 Order name: Basic Metabolic Panel; Complete Time: 18:37 rn 05/20 17:12 Order name: CBC with Diff; Complete Time: 18:37 rn 05/20 17:12 Order name: NT PRO-BNP; Complete Time: 18:37 rn 05/20 17:12 Order name: PT-INR; Complete Time: 18:37 rn 05/20 17:12 Order name: Troponin HS; Complete Time: 18:37 rn 05/20 19:33 Order name: CBC with Automated Diff [facility] 05/20 19:33 Order name: Comprehensive Metabolic Panel [facility] 05/20 19:33 Order name: Creatine Phosphokinase [facility] 05/20 19:33 Order name: Lactate w/ 2H reflex if indic. [facility] 05/20 19:33 Order name: Liver (Hepatic) Function [facility] 05/20 19:33 Order name: Magnesium [facility] 05/20 19:33 Order name: NT PRO-BNP [facility] 05/20 19:33 Order name: Phosphorus [facility] 05/20 19:33 Order name: Thyroid Stimulating Hormone [facility] 05/20 19:33 Order name: Urinalysis w/ reflexes [facility] 05/20 19:33 Order name: Lipid Profile [facility] 05/20 19:33 Order name: Lipid Profile [facility] 05/20 19:33 Order name: Troponin High Sensitivity [facility] 05/20 19:33 Order name: Troponin High Sensitivity [facility] 05/20 19:33 Order name: Troponin High Sensitivity [facility] 05/20 19:33 Order name: Troponin High Sensitivity [facility] 05/20 17:12 Order name: XRAY Chest (1 view); Complete Time: 18:03 05/20 17:12 Order name: EKG; Complete Time: 17:13 rn 05/20 19:33 Order name: CONS Physician Consult [facility] 05/20 17:12 Order name: Cardiac monitoring; Complete Time: 17:56 05/20 17:12 Order name: EKG - Nurse/Tech; Complete Time: 17:28 rn 05/20 17:12 Order name: IV Saline Lock; Complete Time: 18:07 rn 05/20 17:12 Order name: Labs collected and sent; Complete Time: 18:07 rn 05/20 17:12 Order name: O2 Per Protocol; Complete Time: 17:56 rn 05/20 17:12 Order name: O2 Sat Monitoring; Complete Time: 17:56 rn EC:28 Rate is 72 beats/min. Rhythm is regular. QRS [place] is Normal. DC interval is normal. QRS rn interval is normal. QT interval is normal. T waves are Normal. No ST changes noted. Clinical impression: Normal ECG. Interpreted by me. Reviewed by me. Administered Medications: 18:42 Drug: Aspirin PO Chewable Tablet 324 mg PO once; 81 mg tablets x 4 Route: PO; ll1 18:46 Drug: Ibuprofen PO 600 mg PO once {Note: [place] 12/15.} Route: PO; ll1 Disposition Summary: 05/20/24 18:48 Hospitalization Ordered Notes: Hospitalization Status: Observation rn Provider: Amparo Rivera rn Condition: Stable rn Problem: new rn Symptoms: have improved rn Bed/Room Type: Standard rn Location: Telemetry/MedSurg (observation)(05/21/24 03:41) rv1 Room Assignment: 213(05/21/24 03:41) rv1 Diagnosis - Chest pain, unspecified rn Forms: - Medication Reconciliation Form rn - SBAR form rn - Leadership Thank You Letter rn Signatures: Dispatcher [employer] EDKristopher Ramos MD MD rn Lewis, Lynsay, RN RN ll1 Tamie Rouse RN RN koGuillermina Nair rv1 Corrections: (The following items were deleted from the chart) 21:05 18:48 Telemetry/MedSurg (observation) rn rv1 21:05 18:48 rn rv1 05/21 03:41 05/20 21:05 [facility] ER HOLD rv1 rv1 05/21 03:41 05/20 21:05 ERHOLD- rv1 rv1
--- NOTE | 2024-05-20 18:48 | ER ---
Nurse's Notes [facility] Name: Olivia Powers Age: 59 yrs Sex: Female : 1965 Arrival Date: 05/20/2024 Time: 16:51 Bed 6 Private MD: Diagnosis: Chest pain, unspecified Presentation: 05/20 17:13 Chief complaint: Patient states: chest pains off and on for a year, last month went to [address] and he said he thought I had a right sided blockage, had nuclear stress test this morning and the office said it was abnormal. Coronavirus screen: At this time, the client does not indicate any symptoms associated with coronavirus-19. Ebola Screen: No symptoms or risks identified at this time. Initial Sepsis Screen: Does the patient meet any 2 criteria? No. Patient's initial sepsis screen is negative. Does the patient have a suspected source of infection? No. Patient's initial sepsis screen is negative. Risk Assessment: Do you want to hurt yourself or someone else? Patient reports no desire to harm self or others. Onset of symptoms is unknown. 17:13 Method Of Arrival: Ambulatory [facility] 17:13 Acuity: RITO 3 ko1 Triage Assessment: 17:23 General: Appears in no apparent distress. Behavior is calm, cooperative, appropriate ko1 for age. Pain: Complains of pain in chest. Cardiovascular: Reports chest pain. Historical: - Allergies: 17:23 No Known Allergies; ko1 - PMHx: 17:23 SVT; ko1 - PSHx: 17:23 Cholecystectomy; ear; hysterectomy; ko1 - Immunization history:: Adult Immunizations unknown. - Infectious Disease History:: Denies. - Social history:: Smoking status: Patient/guardian denies using tobacco, but has a distant history of tobacco abuse. - Family history:: not pertinent. - Hospitalizations: : No recent hospitalization is reported. Screenin:13 [facility] ED Fall Risk Assessment (Adult) History of falling in the last 3 months, ll1 including since admission No falls in past 3 months (0 pts) Confusion or Disorientation No (0 pts) Intoxicated or Sedated No (0 pts) Impaired Gait No (0 pts) Mobility Assist Device Used No (0 pt) Altered Elimination No (0 pt) Score/Fall Risk Level 0 - 2 = Low Risk Maintained a safe environment, Hourly rounding (assess needs \T\ fall precautionary measures) done. Abuse screen: Denies threats or abuse. Nutritional screening: No deficits noted. Tuberculosis screening: No symptoms or risk factors identified. Assessment: 18:13 General: Appears in no apparent distress. Behavior is calm, cooperative, appropriate ll1 for age. Pain: Complains of pain in chest Quality of pain is described as pressure. Neuro: Reports headache. Cardiovascular: Reports chest pain. 18:38 Reassessment: No changes from previously documented assessment. Patient and/or family ll1 updated on plan of care and expected duration. Pain level reassessed. Patient is alert, oriented x 3, equal unlabored respirations, skin warm/dry/pink. 19:23 Pain: Pain does not radiate. Pain began. cp4 05/21 04:05 Reassessment: Report faxed at [phone]. No answer to confirm after several attempts. [facility]4 tunnel heading supervisor notified. Vital Signs: 05/20 17:13 BP 123 / 74; Pulse 78; Resp 18; Temp 97.3; Pulse Ox 100% ; ko1 18:38 BP 119 / 78; Pulse 72; Resp 15; Pulse Ox 99% on R/A; ll1 ED Course: 16:55 Patient arrived in ED. ra3 17:11 Kristopher Ibarra MD is Attending Physician. rn 17:23 Triage completed. ko1 17:23 Arm band placed on right wrist. Patient placed in waiting room, Patient notified of ko1 wait time. 17:45 XRAY Chest (1 view) In Process Unspecified. EDMS 17:50 Angelina Good, RN is Primary Nurse. ph 17:55 Client placed on continuous cardiac and pulse oximetry monitoring. NIBP monitoring ap3 applied. patient monitor on. Pulse ox on. NIBP on. 17:55 Inserted saline lock: 20 gauge in right upper arm, using aseptic technique. Blood ll1 collected. Flushed with 10 mL NS. 18:14 Patient has correct armband on for positive identification. Bed in low position. ll1 Provided Education on: ER procedures and process. 18:14 Warm blanket given. ll1 18:14 Patient maintains SpO2 saturation greater than 95% on room air. ll1 18:48 Ying Rivera is Hospitalizing Provider. rn 18:48 Amparo Rivera MD is Hospitalizing Provider. rn 19:23 No provider procedures requiring assistance completed. cp4 19:23 Patient admitted, IV remains in place. cp4 20:40 Primary Nurse role handed off by Angelina Good RN cp4 20:40 Apryl Kessler is Primary Nurse. cp4 Administered Medications: 18:42 Drug: Aspirin PO Chewable Tablet 324 mg PO once; 81 mg tablets x 4 Route: PO; ll1 18:46 Drug: Ibuprofen PO 600 mg PO once {Note: [place] 12/15.} Route: PO; ll1 Medication: 18:14 VIS not applicable for this client. ll1 Outcome: 18:48 Decision to Hospitalize by Provider. rn 19:23 Admitted to ER Hold. Please see [facility] for further documentation. cp4 19:23 Condition: stable 19:23 Instructed on the need for admit, 05/21 04:54 Patient left the ED. cp4 Signatures: Dispatcher [employer] EDMS Kristopher Ibarra MD MD rn Hall, Patricia, ARTEM RN Holly Friedman RN RN ap3 Daren Rose RN RN ll1 Tamie Rouse RN RN ko1 Apryl Kessler cp4 Rachna Arvizu ra3 Corrections: (The following items were deleted from the chart) 05/20 23:24 23:23 No provider procedures requiring assistance completed. cp4 cp4
[2024-05-20] MEDS ORDERED: ONDANSETRON 4 MG/2 ML VIAL IV PRN (19:27)
[2024-05-20] MEDS ORDERED: NITROGLYCERIN 0.4 MG/TAB SL PRN (19:31)
--- NOTE | 2024-05-20 19:37 | P.HP ---
Certification for Inpatient Patient admitted to: Observation With expected LOS: <2 Midnights Practitioner: I am a practitioner with admitting privileges, knowledge of patient current condition, hospital course, and medical plan of care. Services: Services provided to patient in accordance with Admission requirements found in Title 42 Section 412.3 of the Code of Federal Regulations Patient History Date of Service: 05/20/24 Reason for admission: chest pain History of Present Illness: 59-year-old woman with a past medical history significant for SVT presented to the emergency room after an abnormal stress test and worsening chest pain that began earlier today. The patient states that she sees cash register balancer Dr. Jj, and had an abnormal stress test today. Also, the patient had an echocardiogram completed last month. She states that after her stress test, her chest pain worsened. The patient describes her chest pain as substernal with radiation to the right shoulder, and of a pressure-like quality. She states she has had chest pain similar to this before. The patient is a former smoker who quit 9 years ago. She denies fever and shortness of breath. Allergies No Known Allergies Allergy (Verified 10/27/21 21:52) Home medications list reviewed: Yes Home Medications: Acetaminophen [Tylenol Extra Strength] 500 mg PO DAILY PRN 10/27/21 Calcium Carbonate [Tums X-Str] 300 mg PO Q4HP PRN 10/27/21 Mag Hydrox/Aluminum Hyd/Simeth [Mylanta Maximum Strength Liq] 30 ml PO DAILY PRN 10/27/21 Methylprednisolone [Medrol dosepack] 4 mg PO DIRECTED #1 maximo 10/28/21 Metoprolol Tartrate [Lopressor*] 25 mg PO BID #30 tab 10/28/21 Aspirin [Aspirin EC 81 MG] 162 mg PO DAILY #30 tablet. 10/29/21 Atorvastatin Calcium [Lipitor] 20 mg PO BEDTIME #30 tab 10/29/21 - Past Medical/Surgical History Diabetic: No -: SVT -: lap D&C -: rick -: hysterectomy -: R ear surgery bone and ear drum, and repair Psychosocial/ Personal History: Patient works at a home health nurse. - Family History Mother -: Hypertension, Diabetes - Social History Smoking Status: Former smoker (quit 9 years ago) Alcohol use: No CD- Drugs: No Caffeine use: Yes Review of Systems Cardiovascular: Chest Pain Physical Examination - Vital Signs Temperature: 97.3 F Blood Pressure: 106/65 Pulse: 82 Respirations: 18 Pulse Ox (%): 100 (room air) - Physical Exam General: Alert, Oriented x3 HEENT: Atraumatic, Normocephalic Neck: JVD not distended Respiratory: Clear to auscultation bilaterally Cardiovascular: No edema, Regular rate/rhythm, No gallops, No rubs, No murmurs Gastrointestinal: Normal bowel sounds, Non-distended, No tenderness Musculoskeletal: No swelling, No tenderness, No warmth Neurological: Normal strength at 5/5 x4 extr, Sensation intact - Studies Laboratory Data (last 24 hrs) 05/20/24 05/20/24 05/20/24 18:03 18:03 18:03 WBC 5.20 Hgb 13.6 Hct 40.0 Plt Count 192 PT 13.0 H INR 1.17 Sodium 137 Potassium 4.0 BUN 8 Creatinine 0.69 Glucose 92 Assessment and Plan - Problems (Diagnosis) (1) ACS (acute coronary syndrome) Current Visit: No Status: Acute - Plan ACS/Chest pain: Admit to observation Telemetry ordered for history of SVT Cardiology consulted [facility], and other labs ordered to trend CXR- no acute abnormality ECG- normal sinus in ED - Advance Directives Does patient have a Living Will: No Does patient have a Durable POA for Healthcare: No
[2024-05-20 20:35] VITALS: BMI 30.3
[2024-05-21] MEDS: ACETAMINOPHEN 325 MG TABLET PO PRN (05:38)
[2024-05-21] MEDS ORDERED: FLU (Fluarix Triv) TS24-25(6MOS UP)/PF 45 MCG/0.5 ML Syringe IM ONE (07:15)
[2024-05-21 07:38] LABS: Absolute Eosinophils 0.1 K/uL (0-0.5); Absolute Lymphocytes (CBC) 1.4 K/uL (0.7-4.9); Absolute Monocytes 0.4 K/uL (0.1-1.3); Basophils % 0.6 % (0-1.3); Eosinophils % 1.6 % (0-4.4); Hematocrit 41.5 % (36.0-45.0); Hemoglobin 13.8 g/dL (12.0-15.0); Lymphocytes % 36.5 % (15.3-44.8); MCH 29.3 pg (27.0-35.0); MCHC 33.2 g/dL (32.0-36.0); MCV 88.2 fL (80-100); MPV 8.5 fL (7.6-11.3); Monocytes % 10.3 % (3.3-12.3); Nucleated Red Blood Cells % 0.2 % (0-0); Platelets 184 thou/uL (152-406); Red Cell Distribution Width 12.9 % (12.1-15.2)
[2024-05-21 08:00] LABS: Albumin 3.4 g/dL (3.4-5.0); Albumin/Globulin Ratio 1.1 (1.1-1.8); Anion Gap 8.9 mEq/L (5.0-15.0); Bilirubin Direct 0.2 mg/dL (0-0.2); Bilirubin Indirect, Calculated 0.5 mg/dL (0.2-0.8); Bilirubin Total 0.7 mg/dL (0.2-1.0); Globulin 3.2 g/dL (2.3-3.5); Magnesium 2.2 mg/dL (1.6-2.4); Phosphorus 4.8 mg/dL (2.5-4.9); Potassium 4.9 mEq/L (3.5-5.1); Protein, Total 6.6 g/dL (6.4-8.2); Thyroid Stimulating Hormone 2.28 uIU/mL (0.358-3.740); Troponin High Sensitivity 6.5 pg/mL (<58.9)
[2024-05-21] MEDS: ENOXAPARIN 40 MG/0.4 ML SQ SCH (09:09)
--- NOTE | 2024-05-21 10:26 | P.CNS ---
Date of Consult: 05/21/24 Chief Complaint: chest pain History of Present Illness: Patient with PMH of HTN, HLD presented with chest pain, pressure in nature, radiating to right arm and neck that has been going on since she got her stress test done yesterday, denies any other symptoms Allergies No Known Allergies Allergy (Verified 10/27/21 21:52) Home medications list reviewed: Yes Home Medications: Acetaminophen [Tylenol Extra Strength] 500 mg PO DAILY PRN 10/27/21 Aspirin [Aspirin EC 81 MG] 162 mg PO DAILY #30 tablet.dr 10/29/21 Atorvastatin Calcium [Lipitor] 20 mg PO BEDTIME #30 tab 10/29/21 Carvedilol [Coreg] 6.25 mg PO BID 05/20/24 Famotidine [Pepcid] 20 mg PO DAILY 05/20/24 Omeprazole [Prilosec] 40 mg PO DAILY 05/20/24 - Past Medical/Surgical History Diabetic: No -: SVT -: lap D&C -: rick -: hysterectomy -: R ear surgery bone and ear drum, and repair Psychosocial/ Personal History: 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 - Family History Mother Medical History: Hypertension, Diabetes - Social History Smoking Status: Former smoker Alcohol use: No CD- Drugs: No Caffeine use: Yes Review of Systems 10-point ROS is otherwise unremarkable Physical Examination Temp Pulse Resp BP Pulse Ox 97.6 F 65 18 115/62 99 05/21/24 04:00 05/21/24 04:00 05/21/24 04:00 05/21/24 04:00 05/21/24 04:00 General: Alert, In no apparent distress HEENT: Atraumatic, PERRLA, Mucous membr. moist/pink, EOMI, Sclerae nonicteric Neck: Supple, 2+ carotid pulse no bruit, No LAD, Without JVD or thyroid abnormality Respiratory: Clear to auscultation bilaterally, Normal air movement Cardiovascular: Regular rate/rhythm, Normal S1 S2 Gastrointestinal: Normal bowel sounds, No tenderness Musculoskeletal: No tenderness Integumentary: No rashes Neurological: Normal gait, Normal speech, Normal tone, Normal affect Lymphatics: No axilla or inguinal lymphadenopathy Laboratory Data (last 24 hrs) 05/20/24 05/20/24 05/20/24 18:03 18:03 18:03 WBC 5.20 Hgb 13.6 Hct 40.0 Plt Count 192 PT 13.0 H INR 1.17 Sodium 137 Potassium 4.0 BUN 8 Creatinine 0.69 Glucose 92 - Problems (1) Chest pain Current Visit: Yes Status: Acute Plan: with abnormal stress test coronary angiogram today ASA 81 mg daily Lipitor 40 mg daily (2) Hypertension Current Visit: No Status: Acute Plan: continue coreg. Qualifiers: Hypertension type: unspecified Qualified Code(s): I10 - Essential (primary) hypertension (3) H/O supraventricular tachycardia Current Visit: No Status: Chronic Plan: continue to monitor on tele
[2024-05-21] MEDS ORDERED: NA CHLORIDE 0.9% 500 ML ONE (11:28)
[2024-05-21] MEDS ORDERED: LIDOCAINE 1% 20 ML MDV ONE (12:07)
[2024-05-21] MEDS ORDERED: HEPA 1000U/500MLS 2,000 UNIT/1,000 ML BAG IV ONE (12:07)
[2024-05-21] MEDS ORDERED: ATROPINE SULF 1 MG/10 ML SYR IV ONE (12:07)
[2024-05-21] MEDS ORDERED: HEPARIN 10,000 UNIT/10 ML VIAL IV ONE (12:07)
[2024-05-21] MEDS ORDERED: MIDAZOLAM HCL 2 MG/2 ML INJ ONE (12:07)
[2024-05-21] MEDS ORDERED: TICAGRELOR 90 MG TABLET PO ONE (12:08)
[2024-05-21] MEDS ORDERED: HEPARIN 5000 UNIT/ML 1 ML VIAL ONE (12:08)
[2024-05-21] MEDS ORDERED: ASPIRIN 325 MG TAB ONE (12:08)
[2024-05-21] MEDS ORDERED: FENTANYL CITR 100 MCG/2 ML ONE (12:08)
[2024-05-21] MEDS ORDERED: CLOPIDOGREL 75 MG TABLET ONE (12:08)
[2024-05-21] MEDS ORDERED: VERAPAMIL HCL 10 MG/4 ML VIAL IV ONE (12:11)
[2024-05-21 13:58] VITALS: O2SAT 97
--- NOTE | 2024-05-21 14:17 | P.DS ---
Admission Date: 05/20/24 Discharge Date: 05/21/24 Disposition: ROUTINE DISCHARGE Discharge Condition: FAIR Reason for Admission: chest pain - Problems (1) Chest pain Current Visit: Yes Status: Acute (2) Hypertension Current Visit: No Status: Acute Qualifiers: Hypertension type: unspecified Qualified Code(s): I10 - Essential (primary) hypertension (3) H/O supraventricular tachycardia Current Visit: No Status: Chronic (4) Hyperlipidemia Current Visit: Yes Status: Acute Brief History of Present Illness: 59-year-old woman with a past medical history significant for SVT presented to the emergency room after an abnormal stress test and worsening chest pain. She stated that after her stress test, her chest pain worsened. The patient describes her chest pain as substernal with radiation to the right shoulder, and of a pressure-like quality. The patient is a former smoker who quit 9 years ago. Initial troponin was negative, chest x-ray did not show acute disease. Hospital Course: Troponin trended negative x 2. Patient was evaluated by cardiology Dr. Ros chen performed cardiac catheterization. Patient noted to have mild coronary artery disease. No percutaneous intervention done. She was chest pain-free during the hospital stay. Her LDL is 117. Patient statin dose increased to moderate intensity. ACS ruled out, patient noted to have mild coronary artery disease. No SVT on library monitor. Vitals are stable. Patient is deemed stable for discharge. Vital Signs/Physical Exam: Temp Pulse Resp BP Pulse Ox 97.8 F 63 17 108/61 97 05/21/24 08:00 05/21/24 13:55 05/21/24 13:55 05/21/24 13:55 05/21/24 08:00 General: Alert, In no apparent distress, Oriented x3 HEENT: Mucous membr. moist/pink Neck: Supple, JVD not distended Respiratory: Clear to auscultation bilaterally, Normal air movement Cardiovascular: No edema, Regular rate/rhythm Gastrointestinal: Normal bowel sounds, Soft and benign, Non-distended, No tenderness Musculoskeletal: No swelling Integumentary: No rashes Neurological: Normal strength at 5/5 x4 extr Laboratory Data at Discharge: WBC 3.90 thou/uL (4.3-10.9) L 05/21/24 07:26 Hgb 13.8 g/dL (12.0-15.0) 05/21/24 07:26 Hct 41.5 % (36.0-45.0) 05/21/24 07:26 Plt Count 184 thou/uL (152-406) 05/21/24 07:26 PT 13.0 SECONDS (9.4-12.5) H 05/20/24 18:03 INR 1.17 05/20/24 18:03 Sodium 139 mEq/L (136-145) 05/21/24 07:26 Potassium 4.9 mEq/L (3.5-5.1) D 05/21/24 07:26 BUN 10 mg/dL (7-18) 05/21/24 07:26 Creatinine 0.71 mg/dL (0.55-1.02) 05/21/24 07:26 Glucose 110 mg/dL (74-106) H 05/21/24 07:26 Phosphorus 4.8 mg/dL (2.5-4.9) 05/21/24 07:26 Magnesium 2.2 mg/dL (1.6-2.4) 05/21/24 07:26 Total Bilirubin 0.7 mg/dL (0.2-1.0) 05/21/24 07:26 AST 17 U/L (15-37) 05/21/24 07:26 ALT 25 U/L (13-56) 05/21/24 07:26 Alkaline Phosphatase 84 U/L (45-117) 05/21/24 07:26 Triglycerides 84 mg/dL (<150) 05/21/24 07:26 Cholesterol 199 mg/dL (<200) 05/21/24 07:26 HDL Cholesterol 65 mg/dL (40-60) H 05/21/24 07:26 Cholesterol/HDL Ratio 3.06 05/21/24 07:26 Home Medications: Acetaminophen [Tylenol Extra Strength] 500 mg PO DAILY PRN 10/27/21 Aspirin [Aspirin EC 81 MG] 162 mg PO DAILY #30 tablet. 10/29/21 Carvedilol [Coreg] 6.25 mg PO BID 05/20/24 Famotidine [Pepcid*] 20 mg PO DAILY 05/20/24 Omeprazole [Prilosec] 40 mg PO DAILY 05/20/24 Atorvastatin Calcium [Lipitor] 40 mg PO BEDTIME #30 tab 05/21/24 New Medications: Atorvastatin Calcium [Lipitor] 40 mg PO BEDTIME #30 tab Diet: AHA Activity: Ad marcel Followup: Kelly Bronson PA [Primary Care Provider] - 1-2 Weeks Time spent managing pt's care (in minutes): 26
[2024-05-21 17:36] VITALS: BP 119/62; TEMP 97.6
--- NOTE | 2024-05-21 19:12 | OP ---
Date of Procedure: 05/21/2024 Surgeon: Kevin Oseguera Procedures Performed: 1.Left heart catheterization. 2.Selective coronary angiogram. Indication For Procedure: Unstable angina. Abnormal stress test. Access: Right radial, closed by TR band. Sedation Time: 20 minutes with 1 of Versed and 50 of fentanyl. Complications: None. Estimated Blood Loss: Less than 50 cc. Description Of Procedure: After risks, and benefits, and alternatives were explained to the patient, patient agreed to proceed with procedure and signed informed consent. The patient was brought back to the laboratory apparatus glass blower, prepped and draped in a sterile fashion. A time-out was performed. Sedation was ad ministered. Next, the right radial access ultrasound-guided micropuncture technique was obtained. A [place] 4.0 catheter was advanced over a J-wire to the LV cavity. LVEDP was obtained. Pullback did n ot show any gradient. Same catheter was used for selective angiogram of the left and right coronary artery systems. That catheter was later pulled over the J-wire. Sheath was removed. TR band was ap plied. Hemostasis was achieved and the patient was moved back to recovery in stable condition. Findings: 1.Left main normal. 2.LAD, mild luminal irregularities, large. 3.Left circ, proximal to mid 30% disease, then mild luminal irregularities gives large OM1 and OM2 t hat got mild luminal irregularities. 4.RCA, mild luminal irregularities. 5.LVEDP 8 mmHg. Assessment And Plan: 1.Mild proximal to mid left circ disease with normal LAD and RCA. 2.Normal filling pressure. The plan will be to continue medical management for CAD. BROOKLYNN/KATERINA Voice ID: [id number] Report ID: [id number]
--- NOTE | 2024-05-25 17:37 | EKG ---
Test Date: 2024-05-20 Test Time: 17:20:58 Tag Marker: YOANNA MEASUREMENT RESULTS: Intervals: Rate: 72 WY: 158 QRSD: 80 QT: 390 QTc: 427 [place]: P: 73 WY: 158 QRS: 67 T: 63 INTERPRETIVE STATEMENTS: Normal sinus rhythm Normal ECG Compared to ECG 10/27/2021 16:20:15 No significant changes Electronically Signed On 05-25-24 17:24:49 OPERATIONS SUPPORT SPECIALIST by David Jj
== END 2024-05-21 17:15 | disposition home or self-care (01) ==
LOC: ER 16:51 → ERHOLD 19:27 → 2ND 05-21 04:34
PROVIDERS: ADMIT Internal Medicine; ATTEND Internal Medicine
PROC: 4A023N7 Measurement of Cardiac Sampling and Pressure, Left Heart, Percutaneous Approach (ICD-10-PCS; principal; 2024-05-21)
PROC: B2111ZZ Fluoroscopy of Multiple Coronary Arteries using Low Osmolar Contrast (ICD-10-PCS; 2024-05-21)
DX: I25.110 Atherosclerotic heart disease of native coronary artery with unstable angina pectoris (principal); I47.10 Supraventricular tachycardia, unspecified; I10 Essential (primary) hypertension; E11.9 Type 2 diabetes mellitus without complications; Z87.891 Personal history of nicotine dependence; Z79.4 Long term (current) use of insulin; Z79.899 Other long term (current) drug therapy; Z90.49 Acquired absence of other specified parts of digestive tract; Z90.710 Acquired absence of both cervix and uterus; Z82.49 Family history of ischemic heart disease and other diseases of the circulatory system; Z83.3 Family history of diabetes mellitus
CPT/HCPCS: 93005; 85025 ×2; 80048; 36415 ×2; 83735; 82550; 84100; 85610; 80061; 83605; 84443; 82248; 84484 ×2; 80053; 83880 ×2; 71045; 93458; 76937; 99285; C1893; Q9966; J1644; J2003; J1650; J2250; J3010; G0378 ×5; J7040; 99152; 99153; J0461

== ENCOUNTER 2025-02-16 22:34 | Emergency (ER) | payer BC, OTHER ==
[2025-02-16] MEDS ORDERED: NA CHLORIDE 0.9% 1,000 ML ONE (23:12)
[2025-02-16] MEDS ORDERED: MORPHINE 4 MG/ML SYR ONE (23:12)
[2025-02-16] MEDS ORDERED: KETOROLAC 30 MG/ML INJ ONE (23:12)
[2025-02-16] MEDS ORDERED: ONDANSETRON 4 MG/2 ML VIAL ONE (23:12)
[2025-02-16 23:39] LABS: Absolute Lymphocytes (CBC) 2.0 K/uL (0.7-4.9); Hematocrit 41.6 % (36.0-45.0); Hemoglobin 14.1 g/dL (12.0-15.0); MCH 29.0 pg (27.0-35.0); MCHC 34.0 g/dL (32.0-36.0); MCV 85.3 fL (80-100); MPV 8.6 fL (7.6-11.3); Nucleated RBC Absolute Count 0.0 (0-0); Nucleated Red Blood Cells % 0.0 % (0-0); RBC Red Blood Cell Count 4.87 M/uL (3.86-4.86); White Blood Count 6.50 thou/uL (4.3-10.9)
[2025-02-16 23:52] LABS: Anion Gap 8.0 mEq/L (5.0-15.0); BUN Blood Urea Nitrogen 17.0 mg/dL (7-18); Glucose Level 108.0 mg/dL (74-106); NT PRO-BNP 13.0 pg/mL (<125); Potassium 4.0 mEq/L (3.5-5.1); Troponin High Sensitivity 5.0 pg/mL (<58.9)
--- NOTE | 2025-02-17 01:16 | EDPHYS ---
Physician Documentation [facility] Name: Olivia Powers Age: 59 yrs Sex: Female : 1965 Arrival Date: 02/16/2025 Time: 22:34 Bed 7 Private MD: ED Physician Dane Izquierdo HPI: 02/16 23:34 This 59 yrs old Female presents to ER via Ambulatory with complaints of Chest dr5 Pain, Headache. 23:34 Onset: The symptoms/episode began/occurred 2 hour(s) ago. 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 Patient reports that she saw Dr. Jj approximately 6 months ago and had cardiac catheterization completed with no stent or blockage noted. Patient reports that she has these pains intermittently and no one is able to tell her what is going on. Patient denies shortness of breath, nausea, vomiting, diarrhea.. Historical: - Allergies: 23:00 No Known Allergies; ha1 - PMHx: 23:00 SVT; Hypertensive disorder; FATTY LIVER; ha1 - PSHx: 23:00 Cholecystectomy; ear; hysterectomy; ha1 - Immunization history:: Adult Immunizations up to date. - Infectious Disease History:: Denies. - Social history:: Smoking status: Patient/guardian denies using tobacco, the patient reports quitting approximately 2015 years ago. ROS: 23:34 Constitutional: as per hpi dr5 Exam: 23:34 Constitutional: This is a well developed, well nourished patient who is awake, alert, dr5 and in no acute distress. Head/Face: Normocephalic, atraumatic. Eyes: Pupils equal round and reactive to light, extra-ocular motions intact. Lids and lashes normal. Conjunctiva and sclera are non-icteric and not injected. Cornea within normal limits. Periorbital areas with no swelling, redness, or edema. Neck: Trachea midline, no thyromegaly or masses palpated, and no cervical lymphadenopathy. Supple, full range of motion without nuchal rigidity, or vertebral point tenderness. No Meningismus. Chest/axilla: Normal chest wall appearance and motion. Nontender with no deformity. No lesions are appreciated. Cardiovascular: Regular rate and rhythm with a normal S1 and S2. Normal PMI, no JVD. No pulse deficits. Respiratory: Lungs have equal breath sounds bilaterally, clear to auscultation. No rales, rhonchi or wheezes noted. No increased work of breathing, no retractions or nasal flaring. Back: No spinal tenderness. No costovertebral tenderness. Full range of motion. Skin: Warm, dry with normal turgor. Normal color with no rashes, no lesions, and no evidence of cellulitis. MS/ Extremity: Pulses equal, no cyanosis. Neurovascular intact. Full, normal range of motion. Neuro: Awake and alert, GCS 15, oriented to person, place, time, and situation. Cranial nerves II-XII grossly intact. Motor strength 5/5 in all extremities. Sensory grossly intact. Cerebellar exam normal. Normal gait. Vital Signs: 22:40 BP 156 / 79; Pulse 79; Resp 17 S; Temp 97.9(O); Pulse Ox 99% on R/A; Weight 67.13 kg; ha1 Height 5 ft. 3 in. ; 02/17 00:19 BP 132 / 76; Pulse 82; Resp 15 S; Pulse Ox 96% on R/A; lg3 01:15 BP 133 / 77; Pulse 86; Resp 16 S; Pulse Ox 98% on R/A; lg3 02/16 22:40 Body Mass Index 26.22 (67.13 kg, 160.02 cm) ha MDM: 02/16 22:53 Medical Screening Exam initiated dr5 02/17 01:20 Differential diagnosis: viral Infection, URI, Nonspecific chest pain, STEMI, new onset dr5 congestive heart failure. Data reviewed: vital signs, nurses notes, lab test result(s), cardiac enzymes, troponin i, CBC, white blood cell count, hemoglobin, hematocrit, platelets, electrolytes, sodium, potassium, chloride, serum bicarbonate, BUN, creatinine, serum glucose, EKG, radiologic studies, plain films. Consideration of Admission/Observation Escalation of care including admission/observation considered. Escalation considered patient found to have elevated troponin. I considered the following discharge prescriptions or medication management in the emergency department I discussed and recommended Over The Counter medications, Medications were administered in the Emergency Department. See MAR. Independent interpretation of the following test(s) in the Emergency Department X-Ray: My interpretation is Independent rotation of x-ray does not reveal any infiltrates. Historians other than the Patient: Spouse/Significant Other: at bedside. Care significantly affected by the following chronic conditions: Hypertension. Care significantly affected by the following Social Determinants of Health: Poor access to healthcare and/or lack of insurance, Poor access to transportation, Problems related to employment. Scoring Tools HEART Score: History: ECG: Age: Risk Factors: 1 or 2 risk factors (1), Troponin: Total Score = 2. Counseling: I had a detailed discussion with the patient and/or guardian regarding the historical points, exam findings, and any diagnostic results supporting the discharge/admit diagnosis, the presence of at least one elevated blood pressure reading (>120/80) during this emergency department visit, lab results, radiology results, the need for outpatient follow up, for definitive care, a gold wheel blocker and polisher, to return to the emergency department if symptoms worsen or persist or if there are any questions or concerns that arise at home. Medication response: Response to treatment: the patient's symptoms have markedly improved after treatment. Special discussion: I have referred the patient to see his PCP for further evaluation of high blood pressure. I discussed with the patient/guardian in detail that at this point there is no indication for admission to the hospital. It is understood, however, that if the symptoms persist or worsen the patient needs to return immediately for re-evaluation. Based on the history and exam findings, there is no indication for further emergent testing or inpatient evaluation. I discussed with the patient/guardian the need to see the gold wheel blocker and polisher for further evaluation of the symptoms. ED course: Patient is back to baseline and feeling much better. Labs were discussed with patient and printed out given to patient to take to Dr. Jj. Strict ER precautions given. All questions answered. Patient is agreeable plan. Patient reports that she will make appointment tomorrow. 02/16 22:53 Order name: Basic Metabolic Panel; Complete Time: 00:02/16:53 Order name: CBC with Diff; Complete Time: 00:02/16:53 Order name: NT PRO-BNP; Complete Time: 00:02/16 22:53 Order name: Troponin HS; Complete Time: 00:02/16 22:53 Order name: Chest Pa And Lat (2 Views) XRAY 02/16:53 Order name: Cardiac monitoring; Complete Time: 23:02 dr5 02/16 22:53 Order name: EKG - Nurse/Tech; Complete Time: 23:02 dr5 02/16 22:53 Order name: IV Saline Lock; Complete Time: 23:16 dr5 02/16 22:53 Order name: Labs collected and sent; Complete Time: 23:16 dr5 02/16 22:53 Order name: O2 Per Protocol; Complete Time: 23:16 dr5 02/16 22:53 Order name: O2 Sat Monitoring; Complete Time: 23: dr5 EC/12 22:53 Rate is 74 beats/min. Rhythm is regular. QRS Eliot is Normal. MS interval is normal at dr5 166 msec. QRS interval is normal at 80 msec. QT interval is normal at 404 msec. Clinical impression: Normal ECG and No evidence of ischemia. Administered Medications: 23:19 Drug: Ketorolac IVP 15 mg IVP once Route: IVP; Site: right upper arm; 3 02/17 00:21 Follow up: Response: No adverse reaction [facility] 02/16 23:19 Drug: morphine IVP or IV 4 mg IVP once over 4 mins Route: IVP; Infused Over: 4 mins; 3 Site: right upper arm; 02/17 00:21 Follow up: Response: No adverse reaction; Marked relief of symptoms [facility] 02/16 23:19 Drug: Ondansetron IVP 4 mg IVP once; over 2 minutes Route: IVP; Site: right upper arm; 3 02/17 00:21 Follow up: Response: No adverse reaction; Marked relief of symptoms [facility] 02/16 23:19 Drug: NS 0.9% IV 1000 ml IV at 1000 ml once; to be given as a bolus over 60 minutes 3 Route: IV; Rate: 1000 ml; Site: right upper arm; 02/17 00:21 Follow up: Response: No adverse reaction; IV Status: Completed infusion; IV Intake: lg3 1000ml Disposition: 03:51 Co-signature as Attending Physician, Dane Izquierdo MD I agree with the assessment sp4 and plan of care. I reviewed the patient's care provided by the Advanced Practice Provider and agree with the diagnosis and treatment plan. Disposition Summary: 02/17/25 01:15 Discharge Ordered Notes: Location: Home dr5 Condition: Stable dr5 Diagnosis - Chest pain, unspecified dr5 Followup: dr5 - With: Emergency Department - When: As needed - Reason: Worsening of condition Followup: dr5 - With: David Jj MD - When: 1 - 2 days - Reason: Recheck today's complaints, Continuance of care, Re-evaluation by your physician Discharge Instructions: - Discharge Summary Sheet dr5 - Nonspecific Chest Pain, Adult dr5 Forms: - Medication Reconciliation Form dr5 - Patient Portal Instructions dr5 - Leadership Thank You Letter dr5 Prescriptions: - Ibuprofen 800 mg Oral Tablet - take 1 tablet ORAL route every 12 hours As needed take with food; 20 tablet; dr5 Refills: 0, Product Selection Permitted Signatures: Dispatcher [employer] EDMS Chikis Ramirez RN RN lg3 Luz Elizalde RN RN ha1 Dane Izquierdo MD MD sp4 Missael Lawrence, SKID WRAPPER-C SKID [id number] Corrections: (The following items were deleted from the chart) 02/16 22:54 22:53 BASIC METABOLIC PANEL+C.LAB.BRZ ordered. EDMS EDMS 22:54 22:54 CBC+H.LAB.BRZ ordered. EDMS EDMS 22:54 22:54 PROBNP+C.LAB.BRZ ordered. EDMS EDMS 22:54 22:54 Troponin High Sensitivity+C.LAB.BRZ ordered. EDMS EDMS 22:54 22:54 Chest Pa And Lat (2 Views)+RAD.RAD.BRZ ordered. EDMS EDMS
--- NOTE | 2025-02-17 01:16 | ER ---
Nurse's Notes [facility] Name: Olivia Powers Age: 59 yrs Sex: Female : 1965 Arrival Date: 02/16/2025 Time: 22:34 Bed 7 Private MD: Diagnosis: Chest pain, unspecified Presentation: 02/16 22:40 Chief complaint: Patient states: CHEST PAIN THAT STARTED A COUPLE OF HOURS AGO, ha1 HEADACHE, NAUSEA, AND NECK PAIN. 22:40 Coronavirus screen: Client denies travel out of the [place] in the last 14 days. Ebola ha1 Screen: No symptoms or risks identified at this time. Initial Sepsis Screen: Does the patient meet any 2 criteria? No. Patient's initial sepsis screen is negative. Does the patient have a suspected source of infection? No. Patient's initial sepsis screen is negative. Risk Assessment: Do you want to hurt yourself or someone else? Patient reports no desire to harm self or others. Onset of symptoms was February 16, 2025. 22:40 Method Of Arrival: Ambulatory ha1 22:40 Acuity: RITO 2 ha1 Historical: - Allergies: 23:00 No Known Allergies; ha1 - PMHx: 23:00 SVT; Hypertensive disorder; FATTY LIVER; ha1 - PSHx: 23:00 Cholecystectomy; ear; hysterectomy; ha1 - Immunization history:: Adult Immunizations up to date. - Infectious Disease History:: Denies. - Social history:: Smoking status: Patient/guardian denies using tobacco, the patient reports quitting approximately 2015 years ago. Screenin:13 [facility] ED Fall Risk Assessment (Adult) History of falling in the last 3 months, lg3 including since admission No falls in past 3 months (0 pts) Confusion or Disorientation No (0 pts) Intoxicated or Sedated No (0 pts) Impaired Gait No (0 pts) Mobility Assist Device Used No (0 pt) Altered Elimination No (0 pt) Score/Fall Risk Level 0 - 2 = Low Risk Oriented to surroundings, Maintained a safe environment, Educated pt \T\ family on fall prevention, incl call for assistance when getting out of bed, Assessed \T\ reinforced patient's understanding of fall precautions. Abuse screen: Denies threats or abuse. Denies injuries from another. Nutritional screening: No deficits noted. Tuberculosis screening: No symptoms or risk factors identified. Assessment: 23:13 General: Appears in no apparent distress. uncomfortable, Behavior is calm, cooperative. lg3 Pain: Complains of pain in mid-sternal area Pain does not radiate. Pain currently is 6 out of 10 on a pain scale. Quality of pain is described as heavy, pressure, Pain began 3 hours ago. Neuro: No deficits noted. Goldsmith Agitation-Sedation Scale (RASS): 0 - Alert and Calm Level of Consciousness is awake, alert, obeys commands, Oriented to person, place, time, situation, Reports headache frontal area. Cardiovascular: No deficits noted. Reports chest pain, nausea, Denies shortness of breath, Heart tones S1 S2 present. Respiratory: No deficits noted. Airway is patent Respiratory effort is even, unlabored, Respiratory pattern is regular, symmetrical. GI: No deficits noted. Abdomen is round non-distended, Reports nausea. : No signs and/or symptoms were reported regarding the genitourinary system. EENT: No deficits noted. No signs and/or symptoms were reported regarding the EENT system. Derm: No deficits noted. No signs and/or symptoms reported regarding the dermatologic system. Skin is intact, is healthy with good turgor, Skin is dry, Skin is normal, Skin temperature is warm. Musculoskeletal: No deficits noted. No signs and/or symptoms reported regarding the musculoskeletal system. Circulation, motion, and sensation intact. Range of motion: intact in all extremities. 02/17 00:19 Reassessment: Patient appears in no apparent distress at this time. No changes from lg3 previously documented assessment. Patient and/or family updated on plan of care and expected duration. Pain level reassessed. Patient is alert, oriented x 3, equal unlabored respirations, skin warm/dry/pink. Patient states symptoms have improved. 01:15 Reassessment: Patient appears in no apparent distress at this time. No changes from lg3 previously documented assessment. Patient and/or family updated on plan of care and expected duration. Pain level reassessed. Patient is alert, oriented x 3, equal unlabored respirations, skin warm/dry/pink. Patient states feeling better. Patient states symptoms have improved. Vital Signs: 02/16 22:40 BP 156 / 79; Pulse 79; Resp 17 S; Temp 97.9(O); Pulse Ox 99% on R/A; Weight 67.13 kg; ha1 Height 5 ft. 3 in. ; 02/17 00:19 BP 132 / 76; Pulse 82; Resp 15 S; Pulse Ox 96% on R/A; lg3 01:15 BP 133 / 77; Pulse 86; Resp 16 S; Pulse Ox 98% on R/A; lg3 02/16 22:40 Body Mass Index 26.22 (67.13 kg, 160.02 cm) ha1 ED Course: 02/16 22:39 Patient arrived in ED. im 22:52 Missael Lawrence FNP-C is PHCP. dr5 22:52 Dane Izquierdo MD is Attending Physician. dr5 23:00 Triage completed. ha1 23:02 EKG done, by vehicle glass technician. ts3 23:13 Initial lab(s) drawn, by or, sent to lab. Inserted saline lock: 22 gauge in right upper lg3 arm, using aseptic technique. Blood collected. Flushed with 10 mL NS. Patient maintains SpO2 saturation greater than 95% on room air. 23:13 Patient has correct armband on for positive identification. Placed in gown. Bed in low lg3 position. Call light in reach. Side rails up X 1. Client placed on continuous cardiac and pulse oximetry monitoring. NIBP monitoring applied. manager willow on. Door closed. Noise minimized. Warm blanket given. Pillow given. 23:13 Arm band placed on right wrist. lg3 23:16 Chest Pa And Lat (2 Views) XRAY In Process Unspecified. EDMS 23:16 Basic Metabolic Panel Sent. lg3 23:16 CBC with Diff Sent. lg3 23:16 NT PRO-BNP Sent. lg3 23:16 Troponin HS Sent. lg3 02/17 00:19 Chikis Ramirez, ARTEM is Primary Nurse. lg3 01:15 David Jj MD is Referral Physician. dr5 01:16 No provider procedures requiring assistance completed. IV discontinued, intact, lg3 bleeding controlled, No redness/swelling at site. Pressure dressing applied. Administered Medications: 02/16 23:19 Drug: Ketorolac IVP 15 mg IVP once Route: IVP; Site: right upper arm; lg3 02/17 00:21 Follow up: Response: No adverse reaction lg3 02/16 23:19 Drug: morphine IVP or IV 4 mg IVP once over 4 mins Route: IVP; Infused Over: 4 mins; lg3 Site: right upper arm; 02/18 00: Follow up: Response: No adverse reaction; Marked relief of symptoms lg3 02/16 23:19 Drug: Ondansetron IVP 4 mg IVP once; over 2 minutes Route: IVP; Site: right upper arm; lg3 02/18 00:21 Follow up: Response: No adverse reaction; Marked relief of symptoms lg3 02/16 23: Drug: NS 0.9% IV 1000 ml IV at 1000 ml once; to be given as a bolus over 60 minutes lg3 Route: IV; Rate: 1000 ml; Site: right upper arm; 02/18 00: Follow up: Response: No adverse reaction; IV Status: Completed infusion; IV Intake: lg3 1000ml Medication: 02/16 23: VIS not applicable for this client. lg3 Intake: 02/18 00: IV: 1000ml; Total: 1000ml. lg3 Outcome: 01:15 Discharge ordered by . dr5 :21 Discharged to home ambulatory, with family, lg3 :21 Condition: stable :21 Discharge instructions given to patient, Instructed on discharge instructions, follow up and referral plans. medication usage, Demonstrated understanding of instructions, follow-up care, medications, Prescriptions given X , : Patient left the ED. lg3 Signatures: Dispatcher [employer] Chikis Mcclain RN RN lg3 Luz Elizalde RN RN ha1 Inessa Garnica Dustin, UNEMPLOYMENT EXAMINER-C UNEMPLOYMENT EXAMINER-[facility]5 Lorraine Ovalle 3
--- NOTE | 2025-02-17 01:27 | RAD REPORT ---
EXAM DESCRIPTION: XR CHEST 2 VIEWS INDICATION: CHEST PAIN TECHNIQUE: Chest 2 view. COMPARISON: None FINDINGS: Cardiovascular and mediastinum: The cardiac silhouette is within normal limits in size. The central v ascularity is within normal limits. Mediastinum is within normal limits. Lungs and pleural spaces: Calcified granulomata. No focal consolidation. No sign of pleural effusio n. No pneumothorax. Bones: Degenerative changes. Soft tissues: No significant findings Other: No significant findings IMPRESSION: No acute cardiopulmonary disease Electronically signed by: Alex Ambriz MD 02/17/2025 12:16 AM CDT RP Z Due to temporary technical issues with the PACS/[employer] reporting system, reports are being cintia d by the in-house radiologist without review as a courtesy to ensure prompt reporting the interpreting radiologist is fully responsible for the content of the report Transcribed Date/Time: 02/17/2025 1:27 AM
[2025-02-17 01:28] VITALS: TEMP 97.9
[2025-02-17 01:32] VITALS: BP 133/77; O2SAT 98
== END 2025-02-17 01:23 | disposition home or self-care (01) ==
LOC: ER 22:34
DX: R07.9 Chest pain, unspecified (principal); R51.9 Headache, unspecified; I10 Essential (primary) hypertension; Z98.61 Coronary angioplasty status
CPT/HCPCS: 96361; 93005; 85025; 80048; 36415; 84484; 83880; 71046; 96375; 96374; 99285; J2405; J7030